=== PATIENT | female | born 1935 | race Caucasian/White ===

== ENCOUNTER → 2016-11-27 | Outpatient (REF) | payer MEDICARE, MEDICAID ==
[~2016-11-27] MED LIST: ALLO300T2 PO; ASPI325T PO; CLOP75TA2 PO; LASI40TA PO; LISIPOW PO; LOVA1CAP16 PO; METO50TA2 PO; METO50TA4 PO; NOVOLIN SC; OMEP20CA3 PO; OXYB5TAB80 PO; REGULAR INSULIN SC; SIMV40TA2 PO
== END ==
LOC: M LAB REF 17:03
PROVIDERS: ATTEND Internal Medicine Nephrology
DX: D50.9 Iron deficiency anemia, unspecified (principal)

== ENCOUNTER 2016-12-09 09:19 | Outpatient (CLI) | payer MEDICARE, MEDICAID ==
[2016-12-09] MEDS ORDERED: IRON SUCROSE 25 MG in NS 50 ML IV ONE (10:00)
[2016-12-09] MEDS ORDERED: IRON SUCROSE 475 MG in NS 250 ML IV ONE (11:00)
== END 2016-12-09 14:55 | disposition home or self-care (01) ==
LOC: M INFU 09:19
PROVIDERS: ATTEND Internal Medicine Nephrology
DX: D50.9 Iron deficiency anemia, unspecified (principal)
CPT/HCPCS: 96365; 96366; J1756

== ENCOUNTER → 2018-01-18 | Outpatient (CLI) | payer MEDICARE, MEDICAID | LOC: M RAD 13:22 | DX: N18.6 End stage renal disease (principal) | CPT/HCPCS: G0365 ==

== ENCOUNTER → 2018-02-11 | Day surgery (SDC) | payer MEDICARE, MEDICAID ==
[~2018-02-11] MED LIST changes: -ALLO300T2 PO; -ASPI325T PO; -CLOP75TA2 PO; -LASI40TA PO; -LISIPOW PO; -LOVA1CAP16 PO; -METO50TA2 PO; -METO50TA4 PO; -NOVOLIN SC; +NS 1,000 ML IV; -OMEP20CA3 PO; -OXYB5TAB80 PO; -REGULAR INSULIN SC; -SIMV40TA2 PO
== END | disposition home or self-care (01) ==
LOC: M SDC 09:41
DX: N18.9 Chronic kidney disease, unspecified (principal); Z53.8 Procedure and treatment not carried out for other reasons

== ENCOUNTER → 2018-08-11 | Outpatient (CLI) | payer MEDICARE, MEDICAID | LOC: M RAD 11:56 | DX: Z01.818 Encounter for other preprocedural examination (principal); N18.6 End stage renal disease | CPT/HCPCS: G0365 ==

== ENCOUNTER 2018-10-06 10:51 | Day surgery (SDC) | payer MEDICARE, MEDICAID ==
[~2018-10-06] VITALS: Ht 134.6 cm; Wt 66.2 kg
[~2018-10-06 10:51] MED LIST changes: +ALBU83IN INH; +ALLO10TA PO; +ALLO300T2 PO; +AMLO5TAB6 PO; +ASPI325T PO; +CLOP75TA2 PO; +FENO54TA2 PO; +FURO40TA2 PO; +HUMU70IN SC; +INSUNSD SC; +LASI40TA PO; +LIDOCAINE 2% INJ 100 MG/5 ML SDV (FOR ANES.) As Ordered ONE; +LISIPOW PO; +LOVA1CAP16 PO; +LOVA1CAP17 PO; +META58.612 PO; +METO1TAB32 PO; +METO50TA2 PO; +METO50TA4 PO; +MIDAZOLAM INJ 2 MG/2 ML VIAL (J2250) As Ordered ONE; +MUCI3TAB PO; +NOVOLIN SC; -NS 1,000 ML IV; +OMEP20CA3 PO; +ONDANSETRON 4MG/2ML VIAL (J2405) As Ordered ONE; +OXYB5TAB10 PO; +OXYB5TAB80 PO; +PRAV10TA3 PO; +PROBCAP14 PO; +PROPOFOL 500 MG/50 ML VIAL As Ordered ONE; +REGULAR INSULIN SC; +SIMV40TA2 PO; +SPIR-10 PO; +VITA50005 PO; +Vantin PO; +dexameTHASONE 4 MG/ML 1ML VIAL (J1100) As Ordered ONE; +fentaNYL 100 MCG/2 ML INJECTION (J3010) As Ordered ONE
[2018-10-06] MEDS ORDERED: D5W/0.2% SODIUM CHLORIDE 1,000 ML IV ONE (11:00)
[2018-10-06] MEDS ORDERED: LIDOCAINE 1% SDV INJ 30 ML VIAL As Ordered ONE (15:10)
[2018-10-06] MEDS ORDERED: BUPIVACAINE HCL 0.5% 30 ML VIAL As Ordered ONE (15:11)
[2018-10-06] MEDS ORDERED: HEPARIN SOD (PORCINE) 5000 UNITS/ML VIAL As Ordered ONE (15:11)
[2018-10-06 16:55] VITALS: BP 129/58
--- NOTE | 2018-11-02 16:12 | RO ---
DATE OF PROCEDURE: 10/06/2018 PREOPERATIVE DIAGNOSIS: Chronic renal insufficiency nearing end-stage renal disease. POSTOPERATIVE DIAGNOSIS: Chronic renal insufficiency nearing end-stage renal disease. PROCEDURE: Right brachiocephalic arteriovenous fistula creation. SURGEON: Dr. Lebron Coles COMIC BOOK ARTIST: None. INDICATION: The patient is a 82-year-old female with previous fistula creation that thrombosed and now needs access for future hemodialysis. The patient will undergo creation of a right brachiocephalic arteriovenous fistula. Risks, benefits and alternative treatment options were discussed with the patient. ANESTHESIA: Anesthesia was local MAC. ESTIMATED BLOOD LOSS: 30 mL IV FLUIDS: 500 mL. HEPARIN: None. COMPLICATIONS: Drains none. SPECIMENS: None. IMPLANT: Implant. PROCEDURE: The patient was taken to the operating room, placed supine on the operating table and prepped and draped in a standard surgical fashion. An incision was made at the antecubital fossa after anesthetizing overlying skin 1% lidocaine mixed with 0.5% Marcaine. The brachial artery and cephalic vein was sharply dissected free encircled vessel loops. The cephalic vein was then transected as far distal as possible and the remnant ligated with a 2-0 silk suture. Cephalic vein was dilated with heparinized saline brought to the brachial artery. The brachial artery was clamped proximally and distally and arteriotomy created. The cephalic vein was anastomosed to the brachial artery in end-to-side fashion using 6-0 Prolene suture in running continuous fashion. Clamps were released. There was good flow in the brachial artery proximal distal the arteriovenous anastomosis as well as good flow into the cephalic vein. Hemostasis was obtained after which the incision was closed using 3-0 Monocryl to approximate the skin in a running subcuticular fashion. Steri-Strips and dressings were applied. The patient tolerated the procedure well. All instrument, sponge and needle counts were correct at the end the case and there were no complications. Dr. Coles was present for and directed the entire case. The patient was transferred to the recovery room awake, alert, extubated and in stable condition.
== END 2018-10-06 17:23 | disposition home or self-care (01) ==
LOC: M SDC 10:51
PROVIDERS: ATTEND Surgery Vascular Surgery
DX: N18.9 Chronic kidney disease, unspecified (principal)
CPT/HCPCS: 36821; J1100; J2250; J2405; J3010

== ENCOUNTER → 2019-01-02 | Outpatient (REF) | payer MEDICARE, MEDICAID ==
[~2019-01-02] MED LIST changes: +ASPI-1 PO; -LIDOCAINE 2% INJ 100 MG/5 ML SDV (FOR ANES.) As Ordered ONE; -MIDAZOLAM INJ 2 MG/2 ML VIAL (J2250) As Ordered ONE; -ONDANSETRON 4MG/2ML VIAL (J2405) As Ordered ONE; -PROPOFOL 500 MG/50 ML VIAL As Ordered ONE; -dexameTHASONE 4 MG/ML 1ML VIAL (J1100) As Ordered ONE; -fentaNYL 100 MCG/2 ML INJECTION (J3010) As Ordered ONE
[2019-01-02 09:53] LABS: HEMATOCRIT 32.6 % (36.0-47.0); HEMOGLOBIN 9.9 g/dl (12.0-15.5); MEAN CORPUSCULAR HEMOGLOBIN 28.5 pg (27.0-33.0); MEAN CORPUSCULAR HGB CONC 30.4 g/dl (32.0-36.5); MEAN CORPUSCULAR VOLUME 93.9 fl (80.0-96.0); PLATELET COUNT, AUTOMATED 418 10^3/uL (150-450); RED BLOOD COUNT 3.47 10^6/uL (4.00-5.40); WHITE BLOOD COUNT 12.6 10^3/uL (4.0-10.0)
[2019-01-02 10:24] LABS: CALCIUM LEVEL 8.9 MG/DL (8.8-10.2); CREATININE FOR GFR 1.8 MG/DL (0.55-1.30); GLOMERULAR FILTRATION RATE 28.6 (>32); POTASSIUM SERUM 4.7 MEQ/L (3.5-5.1)
== END ==
PROVIDERS: ATTEND Internal Medicine
DX: I21.4 Non-ST elevation (NSTEMI) myocardial infarction (principal)

== ENCOUNTER → 2019-01-04 | Outpatient (REF) | payer MEDICARE, MEDICAID ==
[2019-01-04 08:46] LABS: HEMATOCRIT 33.5 % (36.0-47.0); HEMOGLOBIN 10.2 g/dl (12.0-15.5); MEAN CORPUSCULAR HEMOGLOBIN 28.6 pg (27.0-33.0); MEAN CORPUSCULAR HGB CONC 30.4 g/dl (32.0-36.5); MEAN CORPUSCULAR VOLUME 93.8 fl (80.0-96.0); PLATELET COUNT, AUTOMATED 454 10^3/uL (150-450); RED BLOOD COUNT 3.57 10^6/uL (4.00-5.40); WHITE BLOOD COUNT 12.9 10^3/uL (4.0-10.0)
[2019-01-04 09:19] LABS: CALCIUM LEVEL 9.6 MG/DL (8.8-10.2); CREATININE FOR GFR 1.94 MG/DL (0.55-1.30); GLOMERULAR FILTRATION RATE 26.2 (>32); POTASSIUM SERUM 4.3 MEQ/L (3.5-5.1)
== END ==
PROVIDERS: ATTEND Internal Medicine
DX: I21.4 Non-ST elevation (NSTEMI) myocardial infarction (principal); I50.9 Heart failure, unspecified

== ENCOUNTER → 2019-01-06 | Outpatient (REF) | payer MEDICARE, MEDICAID ==
[2019-01-06 15:15] LABS: CALCIUM LEVEL 9.5 MG/DL (8.8-10.2); CREATININE FOR GFR 1.78 MG/DL (0.55-1.30)
== END ==
PROVIDERS: ATTEND Internal Medicine
DX: I50.9 Heart failure, unspecified (principal)

== ENCOUNTER → 2019-01-09 | Outpatient (REF) | payer MEDICARE, MEDICAID ==
[2019-01-09 11:04] LABS: CALCIUM LEVEL 9.4 MG/DL (8.8-10.2); CREATININE FOR GFR 1.75 MG/DL (0.55-1.30); GLOMERULAR FILTRATION RATE 29.6 (>32); POTASSIUM SERUM 4.9 MEQ/L (3.5-5.1)
== END ==
PROVIDERS: ATTEND Internal Medicine
DX: I21.4 Non-ST elevation (NSTEMI) myocardial infarction (principal)

== ENCOUNTER → 2019-02-03 | Outpatient (CLI) | payer MEDICARE, MEDICAID ==
[~2019-02-03] MED LIST changes: +BUPIVACAINE HCL 0.5% 10 ML VIAL As Ordered ONE; +ISOVUE-300 61% 50ML VIAL (Q9967) As Ordered ONE; +LIDOCAINE 2% MDV 20 ML VIAL As Ordered ONE
== END ==
LOC: M IRPRO 09:56
PROVIDERS: ATTEND Surgery Vascular Surgery
DX: N18.6 End stage renal disease (principal); Z53.9 Procedure and treatment not carried out, unspecified reason

== ENCOUNTER → 2019-12-05 | Outpatient (CLI) | payer MEDICARE, MEDICAID ==
[~2019-12-05] MED LIST changes: +ALTEPLASE 2 MG/2 ML VIAL (J2997 PER 1MG) As Ordered ONE; -BUPIVACAINE HCL 0.5% 10 ML VIAL As Ordered ONE; +LIDOCAINE 1% MDV 20ML VIAL As Ordered ONE; -LIDOCAINE 2% MDV 20 ML VIAL As Ordered ONE; +MIDAZOLAM INJ 2 MG/2 ML VIAL (J2250) As Ordered ONE; +OMEP1CAP73 PO; +fentaNYL 100 MCG/2 ML INJECTION (J3010) As Ordered ONE
--- NOTE | 2019-12-05 18:26 | ROOPDOC ---
[facility] Report Of Operation Report of Operation DATE OF PROCEDURE: 12/05/19 PREPROCEDURE DIAGNOSES: End-stage renal disease with inability to cannulate and use right upper extremity brachiocephalic AV fistula POSTPROCEDURE DIAGNOSES: Same PROCEDURE: 1. Ultrasound-guided examination of right brachiocephalic AV fistula and IV access right cephalic vein 2. Right upper extremity fistulogram SURGEON: Viktoriya Altman MD ANESTHESIA: Local anesthesia 4cc lidocaine. Moderate intravenous conscious sedation was supervised by Dr. Altman. The patient was independently monitored by registered nurse assigned to the Department of radiology using automated blood pressure, EKG, and pulse oximetry. The detailed sedation record is permanently stored in the hospital information system. The following is the brief sedation record: Start time 17:22, stop time 17:58, Versed 1 mg IV, fentanyl 50 g IV. INDICATION FOR PROCEDURE: This is a very pleasant 84-year-old patient with end- stage renal disease currently dialyzing for over a year with a PermCath. The patient does have a right brachiocephalic fistula placed by Dr. Coles in September 2018, but she has not been able to use it for dialysis. Risks benefits and alternatives to a fistulogram and potential intervention were explained to the patient. She is agreeable to proceed. Informed consent was obtained. INTERPRETATION: 1. With ultrasound, we examined the AV fistula. The brachiocephalic AV anastomosis is widely patent. There is good inflow into the cephalic vein which crosses over the antecubital crease and then ascends over the bicep in a zigzag tortuous pattern with intermittent tight stenoses noted. The vein is deep, there is significant subcutaneous tissue above and below it, and it is difficult to cannulate due to being freely mobile in adipose tissue. However, despite being somewhat small and on matured, the vein is patent to the mid upper arm although we did note some nonocclusive thrombus in the cephalic vein as we ascended more proximally in the arm. 2. Initial fistulogram does not show flow past the tip of her sheath. We could not advance a wire or the sheath further to see if there was flow beyond this. 3. After repeat cephalic vein accessed under ultrasound guidance more proximally, we noted there was flow through the fistula to just proximal to the mid arm where we were able to examine with ultrasound, but near the shoulder there are two tight focal occlusions, and proximal to this leading into the central veins there is one millimeter diameter of the cephalic vein. REPORT OF OPERATION: The patient was brought to the angiographic suite in stable condition. Her right upper extremity was prepped and draped in a sterile fashion. A timeout was performed. Local anesthesia was administered to the skin and subcutaneous tissue over the cephalic vein near the AV anastomosis. Ultrasound was used to examine the AV fistula prior to cannulation from the AV anastomosis to the mid upper arm were we were prepped sterilely. Please see interpretation above. We then accessed the cephalic vein near the AV anastomosis under ultrasound guidance. A wire was passed through this access but it was difficult to pass more than [address] the sheath but could not advance the sheath over the wire further. The sheath was flushed with saline and a quick fistulogram was performed, and we noted an occlusion just distal to the tip of the sheath. There was a retrograde branch that was widely patent and the outflow was through the branch. We then tried to navigate a Glidewire more proximally up the arm, but were unable. We place a stitch around the sheath, and removed the sheath. Pressure was held and sterile dressings were applied. I then wanted to see what the outflow was to evaluate the more proximal aspect of the vein. Ultrasound again was used to guide access. Although there was a small amount of thrombus in the vein more proximally, we were able to cannulate easily under ultrasound guidance. A wire only past just proximal to the shoulder, but we were able to place the 4 [place] sheath and flushed the sheath with saline. A fistulogram confirm there was significant tortuosity in the vein, nonocclusive thrombus, and to focal occlusions near the shoulder, with the cephalic vein proximally 1 mm diameter proximal to this leading to the subclavian vein. Despite aggressive attempts, we were not able to advance the wire past the occlusions. This concluded the procedure. Suture was placed at the she site sheath was removed. Sterile dressings were applied. Pressure was held for 5 minutes and the patient was taken to recovery in stable condition. She tolerated the procedure and the sedation well. ESTIMATED BLOOD LOSS: Approximately 5 mL. COMPLICATIONS: None. PLAN: I do not believe her right brachiocephalic fistula is salvageable. Continue to use the PermCath for dialysis. Patient will need a vein mapping and we will discuss options for new autologous versus graft AV access. We also will probably need to ligate her right brachiocephalic AV fistula to help with her symptoms of swelling and discomfort in her right upper extremity. She says she has experienced both of those symptoms since her surgery over a year ago. We would like to expedite this since the patient has not been able to use the fistula since it was placed by Dr. Coles over a year ago, and has been using a PermCath for dialysis for over a year as well. We appreciate the opportunity to participate in the care of this patient. VIKTORIYA ALTMAN MD Dec 05, 2019 18:26
[2019-12-05 19:00] VITALS: BP 139/63
== END ==
LOC: M IRPRO 14:55
PROVIDERS: ATTEND Surgery Vascular Surgery
DX: T82.868A Thrombosis due to vascular prosthetic devices, implants and grafts, initial encounter (principal); N18.6 End stage renal disease; X58.XXXA Exposure to other specified factors, initial encounter; Y93.9 Activity, unspecified; Y92.9 Unspecified place or not applicable; Y99.9 Unspecified external cause status
CPT/HCPCS: 36901; 99152; 99153; C1769; C1894; J1644; J2250; J3010; Q9967

== ENCOUNTER → 2019-12-21 | Outpatient (CLI) | payer MEDICARE, MEDICAID ==
[~2019-12-21] MED LIST changes: -ALTEPLASE 2 MG/2 ML VIAL (J2997 PER 1MG) As Ordered ONE; -ISOVUE-300 61% 50ML VIAL (Q9967) As Ordered ONE; -LIDOCAINE 1% MDV 20ML VIAL As Ordered ONE; -MIDAZOLAM INJ 2 MG/2 ML VIAL (J2250) As Ordered ONE; -fentaNYL 100 MCG/2 ML INJECTION (J3010) As Ordered ONE
--- NOTE | 2019-12-21 13:45 | REP ---
BILATERAL DUPLEX DOPPLER VENOUS AND ARTERIAL ULTRASOUND FOR AV FISTULA MAPPING: Real-time ultrasound evaluation and duplex Doppler interrogation is performed of the upper extremity deep venous and arterial systems, to evaluate for AV fistula placement. There is a patent right-sided AV fistula connecting brachial artery to cephalic vein. Thrombus is seen near the venous anastomosis. There is high resistance arterial flow. On the right, the basilic vein measures 4 mm at the level of the upper and lower humerus 3 mm throughout the forearm. Median cubital vein is not visualized. The right cephalic vein measures 2 mm at the upper humerus. At the level of the lower humerus, it measures 4 mm with intraluminal thrombus. Cephalic vein measures 3 mm at the upper forearm and 2 mm in the lower forearm. Right upper extremity arterial structures demonstrate normal flow velocities with biphasic and triphasic waveforms. Right axillary and branchial arteries measure 5 mm, radial artery 3 mm and ulnar artery 2 mm. On the left, the basilic vein measures 3 mm at the level of the humerus and 2 mm in the upper forearm. It is not visualized in the lower forearm. Median cubital vein measures 2 mm. Left cephalic vein measures 2 mm at the level of the humerus and is not seen in the forearm. Left upper extremity arterial structures demonstrate normal flow velocities with biphasic waveforms. Left axillary artery measures 4 mm, brachial artery, radial and ulnar arteries 3 mm. Electronically Signed by Nick Mccallum MD 12/21/2019 02:34 P
== END ==
LOC: M RAD 09:59
PROVIDERS: ATTEND Physician Assistant
DX: N18.9 Chronic kidney disease, unspecified (principal)

== ENCOUNTER 2020-05-03 11:40 | Inpatient (IN) | payer MEDICARE, MEDICAID ==
[~2020-05-03] VITALS: Ht 134.6 cm; Wt 63.5 kg
[~2020-05-03 11:40] MED LIST changes: +AMLO1TAB24 PO; -AMLO5TAB6 PO
[2020-05-03] MEDS ORDERED: ASPI81TA86 PO (11:58)
[2020-05-03] MEDS ORDERED: NS 1,000 ML IV SCH (12:30)
--- NOTE | 2020-05-03 12:56 | REPVR ---
PROCEDURE INFORMATION: Exam: CT Abdomen And Pelvis Without Contrast Exam date and time: 05/03/2020 12:01 PM Age: 84 years old Clinical indication: Other: Renal failure TECHNIQUE: Imaging protocol: Computed tomography of the abdomen and pelvis without contrast. Radiation optimization: All CT scans at this facility use at least one of these dose optimization techniques: automated exposure control; mA and/or kV adjustment per patient size (includes targeted exams where dose is matched to clinical indication); or iterative reconstruction. COMPARISON: RENAL US 09/28/2014 12:41 PM FINDINGS: Liver: Normal. No mass. Gallbladder and bile ducts: The gallbladder is surgically absent, with metallic clips in the gallbladder fossa. The extrahepatic bile ducts are age-appropriate, measuring 8.6 mm. Pancreas: Moderate pancreatic atrophy. Spleen: Normal. No splenomegaly. Adrenals: Normal. No mass. Kidneys and ureters: Moderate left renal posterior upper pole cortical scarring. Left renal 13.9 mm benign parapelvic cyst. Right renal 4.5 cm probable benign cyst. Right mid renal posterior 1.5 mm calyceal calculus. Left renal calculi (3), the largest in the lateral upper pole measuring 2.1 mm. No evidence of obstructive uropathy. Stomach and bowel: Sigmoid colonic diverticula are present without evidence of diverticulitis. Mild rectal constipation. Appendix: The vermiform appendix is normal. Intraperitoneal space: Unremarkable. No free air. No significant fluid collection. Vasculature: Calcified phleboliths are present in the lower pelvis bilaterally. Marked aortic atherosclerotic calcification without aneurysm. The iliac arteries show moderate bilateral atherosclerotic calcifications without evidence of aneurysm. Atherosclerotic calcifications are present involving the RCA coronary artery. Lymph nodes: No enlarged lymph nodes. Bladder: Unremarkable as visualized. Reproductive: NewThe uterus is status post hysterectomy. The ovaries are not identified. Bones/joints: Bilateral lower lumbar facet primary osteoarthritis. Right L5-S1 lateral recess stenosis. Grade 1 L5-S1 degenerative type anterolisthesis. Mild L3-L4 retrolisthesis. There is degenerative disc disease at multiple lumbar spine disk levels. Soft tissues: A tiny paraumbilical hernia containing only abdominal fat is noted. Nonspecific mild right posterior lateral inferior gluteal at adipose edema/scarring (series 201, image 114). Other findings: . IMPRESSION: 1. Prior cholecystectomy. 2. Diverticulosis. 3. Mild rectal constipation. 4. Prior hysterectomy. 5. Moderate left renal cortical scarring. 6. Left renal benign parapelvic cyst. 7. Right renal probable benign cyst. 8. Bilateral renal calyceal lithiasis. 9. Coronary atherosclerosis. COMMENTS: Consistent with the [employer]'s Incidental Findings Committee white paper (J Am Henry Radiol 2018): Any incidental renal lesion less than 1.0 cm or classified as too small to characterize, or any incidental cystic renal lesion characterized as simple-appearing, is likely benign. No follow-up imaging is recommended for these lesions per consensus recommendations based on imaging criteria. Electronically signed by: Lalit Sewell On 05/03/2020 12:56:22 PM
[2020-05-03] MEDS ORDERED: IPRA0.00 INH (13:08)
[2020-05-03] MEDS ORDERED: VITA50005 PO (13:19)
[2020-05-03] MEDS ORDERED: FISH1000 PO (13:19)
[2020-05-03] MEDS ORDERED: HUMU70IN SC (13:19)
[2020-05-03] MEDS ORDERED: METO1TAB7 PO (13:19)
[2020-05-03] MEDS ORDERED: AMLO2.5T3 PO (13:19)
[2020-05-03] MEDS ORDERED: FURO40TA2 PO (13:19)
[2020-05-03 14:56] LABS: IONIZED CALCIUM 4.5 MG/DL (4.5-5.3)
[2020-05-03 15:32] LABS: BASO # 0.1 10^3/uL (0.0-0.2); BASO % 0.7 % (0.0-1.0); EOS # 0.6 10^3/uL (0.0-0.5); EOS % 4.7 % (0.0-3.0); HEMATOCRIT 42.2 % (36.0-47.0); HEMOGLOBIN 14.2 g/dl (12.0-15.5); LYMPH # 2.5 10^3/uL (1.5-5.0); LYMPH % 18.4 % (24.0-44.0); MEAN CORPUSCULAR HEMOGLOBIN 29.9 pg (27.0-33.0); MEAN CORPUSCULAR HGB CONC 33.6 g/dl (32.0-36.5); MEAN CORPUSCULAR VOLUME 88.8 fl (80.0-96.0); MONO # 1.1 10^3/uL (0.0-0.8); MONO % 8.4 % (0.0-5.0); NEUTROPHILS # 9.1 10^3/uL (1.5-8.5); NEUTROPHILS % 67.1 % (36.0-66.0); PLATELET COUNT, AUTOMATED 309 10^3/uL (150-450); RED BLOOD COUNT 4.75 10^6/uL (4.00-5.40); WHITE BLOOD COUNT 13.6 10^3/uL (4.0-10.0)
[2020-05-03] MEDS ORDERED: DEXTROSE 50% 50 ML SYRINGE IV PRN (15:45)
[2020-05-03] MEDS ORDERED: MAALOX 30 ML SUSP *UDC PO PRN (15:45)
[2020-05-03] MEDS ORDERED: MOM 30ML SUSPENSION UDC PO PRN (15:45)
[2020-05-03] MEDS ORDERED: GLUCOSE 4GM CHEW TABLET PO PRN (15:45)
[2020-05-03] MEDS ORDERED: GLUCAGON INJ 1MG VIAL SC PRN (15:45)
[2020-05-03 15:57] LABS: ALBUMIN 3.5 GM/DL (3.2-5.2); BILIRUBIN,TOTAL 0.3 MG/DL (0.2-1.0); CALCIUM LEVEL 9.1 MG/DL (8.8-10.2); CREATININE FOR GFR 4.96 MG/DL (0.55-1.30); GLOMERULAR FILTRATION RATE 8.9 (>32); MAGNESIUM LEVEL 2.9 MG/DL (1.8-2.4); POTASSIUM SERUM 3.8 MEQ/L (3.5-5.1); TOTAL PROTEIN 6.6 GM/DL (6.4-8.2)
--- NOTE | 2020-05-03 16:07 | HPEPDOC ---
General Date of Admission Date of Service: May 03, 2020 Chief Complaint The patient is a 84-year-old female admitted with a reason for visit of Kidney Issue. Source: Patient Exam Limitations: No limitations Timing/Duration: Other (TWO WEEKS) Severity: Moderate History of Present Illness 84 yof with PMHx of DM-II,HTN,CHF (Non-specific),TIA,GERD,Hyperlipedemia had developed generalized tiredness and shoulder pain on both shoulders , pain is sharp persistant, non radiating, not relieved with meds, not exacerbated by respiration or physical movements, was seen at [facility] and was diagnosed with UTI, symptoms did not resolved and she went back there and was told that UTI is worse now, finally she decideded to go to nephrology office, where she was found to have elevated BUN/Cr and reffered to ED for admission. At present patient complaints of epigastric pain and bilat shoulder pain, no N/V/D. No CP or SOB either. Home Medications Scheduled Allopurinol (Allopurinol) 100 Mg Tab, 100 MG PO BID, (Reported) Amlodipine Besylate (Amlodipine Besylate) 2.5 Mg Tablet, 2.5 MG PO DAILY, (Reported) Aspirin (Aspir 81) 81 Mg Tablet.dr, 81 MG PO Q2D, (Reported) Clopidogrel Bisulfate (Clopidogrel) 75 Mg Tab, 75 MG PO DAILY, (Reported) Ergocalciferol (Vitamin D2) (Vitamin D2) 50,000 Units Cap, 50,000 UNITS PO Q2WK, (Reported) EVERY OTHER WEDNESDAY Furosemide (Furosemide) 40 Mg Tab, 80 MG PO QAM, (Reported) Furosemide (Furosemide) 40 Mg Tablet, 40 MG PO QHS, (Reported) Insulin NPH Hum/Reg Insulin Hm (Humulin 70-30 Vial) 1 Inj Inj, 17 UNITS SC QAM, (Reported) Insulin NPH Hum/Reg Insulin Hm (Humulin 70-30 Vial) 100 Unit/1 Ml Vial, 13 UNITS SC QPM, (Reported) Lactobacillus Acidophilus (Probiotic) 1 Cap Cap, 1 CAP PO DAILY, (Reported) Metoprolol Succinate (Metoprolol Succinate) 50 Mg Tab.er.24h, 50 MG PO BID, (Reported) Mobile-3 Fatty Acids/Fish Oil (Fish Oil 1,000 mg Capsule) 1 Each Capsule, 1,000 MG PO DAILY, (Reported) Omeprazole (Omeprazole) 20 Mg Cap, 20 MG PO DAILY, (Reported) Oxybutynin Chloride (Oxybutynin Chloride) 5 Mg Tab, 5 MG PO DAILY, (Reported) Pravastatin Sodium (Pravastatin Sodium) 10 Mg Tab, 10 MG PO DAILY, (Reported) Spironolactone (Spironolactone) 25 Mg Tab, 25 MG PO DAILY, (Reported) Scheduled PRN Ipratropium/Albuterol Sulfate (Iprat-Albut 0.5-3(2.5) mg/3 ml) 3 Ml Ampul.neb, 1 MAXIMILIANO INH QID PRN for SHORTNESS OF BREATH, (Reported) Allergies Coded Allergies: Sulfa (Sulfonamide Antibiotics) (Verified Adverse Reaction, Intermediate, HYPOTENSION, 05/03/20) nitroglycerin (Verified Adverse Reaction, Intermediate, HYPOTENSION, 05/03/20) codeine (Verified Adverse Reaction, Mild, N/V, 05/03/20) Past Medical History Medical History DM-II,HTN,CHF-Unspecified,TIA,GERD,Hyperlipedemia Surgical History Cholecystectomy,Bladder repair, Bilat AVF placement in the past Family History FHX reviewed, non contributory Social History * Smoker: former Smoker, quit greater than 1 year Alcohol: Denies Drugs: denies A-FIB/CHADSVASC A-FIB History Current/History of A-Fib/PAF?: No Review of Systems Constitutional: Reports: Malaise, Fatigue; Denies: Chills, Fever, Night Sweats, Weakness, Weight Loss, Lethargy, Other Eyes: Denies: Pain, Vision change, Conjunctivae inflammation, Eyelid in flammation, Redness, Other ENT: Denies: Head Aches, Ear Pain, Dysphagia, Sinus Congestion, Post Nasal Drip, Sore Throat, Epistaxis, Other Symptoms Skin: Denies: Rash, Lesions, Jaundice, Bruising, Itching, Dry, Breakdown, Nail Changes, Other Pulmonary: Denies: Dyspnea, Cough, Pleuritic Chest Pain, Other Symptoms Cardiovascular: Denies: Chest Pain, Palpitations, Orthopnea, Paroxysmal Noc. Dyspnea, Edema, Lt Headedness, Other Symptoms Gastrointestinal: Reports: Other Symptoms (epigastric pain); Denies: Nausea, Vomiting, Abdominal Pain, Diarrhea, Constipation, Melena, Hematochezia Genitourinary: Denies: Dysuria, Frequency, Incontinence, Hematuria, Retention, Other Symptoms Hematologic: Denies: Bruising, Bleeding Excessively, Petecchia, Purpura, Enlarged Lymph Nodes, Other Hematologic Endocrine: Denies: Polydipsia, Polyphagia, Polyuria, Heat Intolerance, Cold Intolerance, Other Endocrine Sx Musculoskeletal: Reports: Shoulder Pain (bilat shoulder pain) Neurological: Denies: Weakness, Numbness, Incoordination, Change in speech, Confusion, Seizures, Other Symptoms Psych: Denies: Mood Normal, Anxiety, Depression, Memory Issues, Thoughts of Self Harm, Anger, Thoughts of Harming Other, Other Psych Physical Examination General Exam: Positive: Cooperative Eye Exam: Positive: PERRLA, Conjunctiva & lids normal ENT Exam: Positive: Atraumatic Neck Exam: Positive: Supple Chest Exam: Positive: Clear to auscultation, Normal air movement Heart Exam: Positive: Rate Normal, Normal S1, Normal S2 Abdomen Exam: Positive: Normal bowel sounds, Soft, Tenderness Extremity Exam: Positive: Normal pulses, Other (bilat bruis positive in ati cubital areas) Skin Exam: Positive: Nl turgor and temperature Neuro Exam: Positive: Strength at 5/5 X4 ext, Sensation Intact, Cranial Nerves 3-12 NL Psych Exam: Positive: Mood NL, Oriented x 3 Vital Signs Vital Signs Date Time Temp Pulse Resp B/P (MAP) Pulse Ox O2 Delivery O2 Flow Rate FiO2 05/03/20 14:48 05/03/20 11:40 97.6 58 18 93 Room Air Laboratory Data Labs 24H Laboratory Tests 2 05/03/20 14:30: Lactic Acid Level 0.6 05/03/20 14:31: Immature Granulocyte % (Auto) 0.7, Neutrophils (%) (Auto) 67.1H, Lymphocytes (%) (Auto) 18.4L, Monocytes (%) (Auto) 8.4H, Eosinophils (%) (Auto) 4.7H, Basophils (%) (Auto) 0.7, Neutrophils # (Auto) 9.1H, Lymphocytes # (Auto) 2.5, Monocytes # (Auto) 1.1H, Eosinophils # (Auto) 0.6H, Basophils # (Auto) 0.1, Nucleated Red Blood Cells % (auto) 0.0 05/03/20 14:32: Osmolality 327H, Whole Blood Ionized Calcium 4.5 CBC/BMP Laboratory Tests 05/03/20 14:31 Microbiology Microbiology 05/03/20 Blood Culture, Received Pending 05/03/20 Blood Culture, Received Pending Problems (1) Acute renal failure Status: Acute Problem Text: admit to MED/Surg Floor IVF NS at 100cc/he Dr Yu called for Nephro consult Labs are pending here but done at nephrology office this am showed BUN75 and Cr 4.1 Further recommendations as per nephrology Doubt UTI- probably asymptomatic bactriuria as pt is asymptomatic and afebrile Continue home meds (2) Diabetes mellitus Status: Chronic Problem Text: FSBS q ac and HS with coverage (3) Hyperlipemia Status: Chronic Problem Text: continue home meds (4) HTN (hypertension) Status: Chronic Problem Text: continue home meds (5) GERD (gastroesophageal reflux disease) Plan / VTE VTE Prophylaxis Ordered?: Yes FERMIN HUFF MD May 03, 2020 16:07
[2020-05-03 16:46] LABS: ERYTHROCYTE SEDIMENTATION RATE 37 mm/hr (0-30)
[2020-05-03] MEDS: HumaLOG INSULIN (NovoLOG) PER UNIT SC SCH ×2 (17:30→20:16)
[2020-05-03 19:42] VITALS: BP 140/63
[2020-05-03 22:00] VITALS: BP 130/76
[2020-05-03] MEDS: NS 1,000 ML IV SCH (23:06)
[2020-05-04] MEDS: ACETAMINOPHEN TAB 650MG DOSE (2X325MG) PO PRN ×3 (02:20→21:10)
[2020-05-04 06:00] VITALS: BP 130/61
[2020-05-04 06:07] LABS: HEMATOCRIT 42.8 % (36.0-47.0); HEMOGLOBIN 13.9 g/dl (12.0-15.5); MEAN CORPUSCULAR HEMOGLOBIN 29.8 pg (27.0-33.0); MEAN CORPUSCULAR HGB CONC 32.5 g/dl (32.0-36.5); MEAN CORPUSCULAR VOLUME 91.6 fl (80.0-96.0); PLATELET COUNT, AUTOMATED 298 10^3/uL (150-450); RED BLOOD COUNT 4.67 10^6/uL (4.00-5.40); WHITE BLOOD COUNT 11.5 10^3/uL (4.0-10.0)
[2020-05-04 07:11] LABS: ALBUMIN 3.2 GM/DL (3.2-5.2); BILIRUBIN,TOTAL 0.5 MG/DL (0.2-1.0); CALCIUM LEVEL 8.9 MG/DL (8.8-10.2); CREATININE FOR GFR 4.97 MG/DL (0.55-1.30); GLOMERULAR FILTRATION RATE 8.8 (>32); POTASSIUM SERUM 4.4 MEQ/L (3.5-5.1); TOTAL PROTEIN 6.1 GM/DL (6.4-8.2)
[2020-05-04] MEDS: HumaLOG INSULIN (NovoLOG) PER UNIT SC SCH ×4 (08:27→20:49)
[2020-05-04] MEDS: NS 1,000 ML IV SCH (09:12)
--- NOTE | 2020-05-04 10:58 | IPNPDOC ---
Subjective Date Seen The patient was seen on 05/04/20. Subjective Chief Complaint/HPI Pt still compaining of body pains. General: Reports: Other Symptoms (body aches) Skin: Denies: Rash, Lesions, Jaundice, Bruising, Itching, Dry, Breakdown, Nail Changes, Other Cardiovascular: Denies: Chest Pain, Palpitations, Orthopnea, Paroxysmal Noc. Dyspnea, Edema, Lt Headedness, Other Symptoms Gastrointestinal: Denies: Nausea, Vomiting, Abdominal Pain, Diarrhea, Constipation, Melena, Hematochezia, Other Symptoms Genitourinary: Denies: Dysuria, Frequency, Incontinence, Hematuria, Retention, Other Symptoms Musculoskeletal: Denies: Neck Pain, Back Pain, Shoulder Pain, Arm Pain, Hand Pain, Leg Pain, Foot Pain, Joint Pain, Muscle Pain, Spasms, Other Symptoms Neurological: Denies: Weakness, Numbness, Incoordination, Change in speech, Confusion, Seizures, Other Symptoms Objective Physical Examination Neck Exam: Positive: Supple Chest Exam: Positive: Clear to auscultation, Normal air movement Heart Exam: Positive: Rate Normal, Normal S1, Normal S2 Abdomen Exam: Positive: Normal bowel sounds, Soft, Tenderness Extremity Exam: Positive: Normal pulses, Other (bilat bruis positive in ati cubital areas) Skin Exam: Positive: Nl turgor and temperature Neuro Exam: Positive: Strength at 5/5 X4 ext, Sensation Intact, Cranial Nerves 3-12 NL Assessment /Plan Problems (1) Acute renal failure Status: Acute Problem Text: Continue IVF NS at 100cc/hr Repat renal functions this am 4.97/153 , has not improved since last night. Dr Hensley was made awre about the consult Pt has recieved HD in the past with recovery of her renal functions. Further as per Nephrology Continue present meds (2) GERD (gastroesophageal reflux disease) Problem Text: Continue home meds (3) Diabetes mellitus Status: Chronic Problem Text: FSBS q ac and hs with coverage (4) HTN (hypertension) Status: Chronic Problem Text: Continue present meds (5) Hyperlipemia Status: Chronic Problem Text: continue home meds Plan/VTE VTE Prophylaxis Ordered?: Yes VS, I&O, 24H, Fishbone Vital Signs/I&O Vital Signs Date Time Temp Pulse Resp B/P (MAP) Pulse Ox O2 Delivery O2 Flow Rate FiO2 05/04/20 06:00 97.4 70 19 130/61 (84) 97 Room Air I&O- Last 24 Hours up to 6 AM 05/04/20 06:00 Intake Total 850 ml Output Total 400 ml Balance 450 ml Laboratory Data 24H LABS Laboratory Tests 2 05/03/20 14:30: Lactic Acid Level 0.6 05/03/20 14:31: Immature Granulocyte % (Auto) 0.7, Neutrophils (%) (Auto) 67.1H, Lymphocytes (%) (Auto) 18.4L, Monocytes (%) (Auto) 8.4H, Eosinophils (%) (Auto) 4.7H, Basophils (%) (Auto) 0.7, Neutrophils # (Auto) 9.1H, Lymphocytes # (Auto) 2.5, Monocytes # (Auto) 1.1H, Eosinophils # (Auto) 0.6H, Basophils # (Auto) 0.1, Nucleated Red Blood Cells % (auto) 0.0, Erythrocyte Sedimentation Rate 37H 05/03/20 14:32: Anion Gap 14, Glomerular Filtration Rate 8.9L, Osmolality 327H, Calcium Level 9.1, Whole Blood Ionized Calcium 4.5, Magnesium Level 2.9H, Total Bilirubin 0.3, Aspartate Amino Transf (AST/SGOT) 11, Alanine Aminotransferase (ALT/SGPT) 13, Alkaline Phosphatase 91, Total Creatine Kinase 47, Total Protein 6.6, Albumin 3.5, Albumin/Globulin Ratio 1.1L 05/04/20 05:41: Nucleated Red Blood Cells % (auto) 0.0, Anion Gap 16, Glomerular Filtration Rate 8.8L, Calcium Level 8.9, Total Bilirubin 0.5#, Aspartate Amino Transf (AST/SGOT) 19, Alanine Aminotransferase (ALT/SGPT) 12, Alkaline Phosphatase 87, Total Protein 6.1L, Albumin 3.2, Albumin/Globulin Ratio 1.1L CBC/BMP Laboratory Tests 05/03/20 14:31 05/03/20 14:32 05/04/20 05:41 Microbiology Microbiology 05/03/20 Blood Culture, Received Pending 05/03/20 Blood Culture, Received Pending FERMIN HUFF MD May 04, 2020 10:58
[2020-05-04 14:00] VITALS: BP 150/88
[2020-05-04 14:18] LABS: AMORPHOUS SEDIMENT MODERATE (NEGATIVE); APPEARANCE, URINE TURBID (CLEAR); BACTERIA, URINE AUTO 2+ (NEGATIVE); BILIRUBIN, URINE AUTO NEGATIVE (NEGATIVE); BLOOD, URINE BLOOD 2+ (NEGATIVE); COLOR, URINE YELLOW (YELLOW); GLUCOSE, URINE (UA) AUTO NEGATIVE (NEGATIVE); KETONE, URINE AUTO NEGATIVE (NEGATIVE); LEUKOCYTE ESTERASE, URINE AUTO 2+ (NEGATIVE); NITRITE, URINE AUTO NEGATIVE (NEGATIVE); PROTEIN, URINE AUTO 2+ mg/dL (NEGATIVE); RBC, URINE AUTO 66 /HPF (0-3); SQUAMOUS EPITHELIAL CELL UR AU 23 /HPF (0-6); UROBILINOGEN, URINE AUTO 0.2 mg/dL (0.0-2.0); WBC, URINE AUTO TNTC /HPF (0-3)
[2020-05-04 14:20] LABS: OSMOLALITY URINE 331 MOSM/KG (500-800)
[2020-05-04 14:49] LABS: POTASSIUM RANDOM URINE 24.7 MEQ/L; SODIUM,RANDOM URINE 39 MEQ/L
[2020-05-04] MEDS ORDERED: SODIUM BICARBONATE 75 MEQ in NS 0.45% 1,000 ML IV SCH (15:00)
[2020-05-04] MEDS: cefTRIAXone SOD 1 GM in D5W MINI-BAG PLUS 50 ML IV SCH (15:07)
[2020-05-04] MEDS: traMADol 50 MG TAB PO PRN (16:54)
[2020-05-04 19:04] LABS: APPEARANCE, URINE HAZY (CLEAR); BACTERIA, URINE AUTO NEGATIVE (NEGATIVE); BILIRUBIN, URINE AUTO NEGATIVE (NEGATIVE); BLOOD, URINE BLOOD 3+ (NEGATIVE); COLOR, URINE YELLOW (YELLOW); GLUCOSE, URINE (UA) AUTO NEGATIVE (NEGATIVE); KETONE, URINE AUTO NEGATIVE (NEGATIVE); LEUKOCYTE ESTERASE, URINE AUTO 3+ (NEGATIVE); NITRITE, URINE AUTO NEGATIVE (NEGATIVE); PROTEIN, URINE AUTO NEGATIVE (NEGATIVE); RBC, URINE AUTO 12 /HPF (0-3); SPECIFIC GRAVITY URINE AUTO 1.005 (1.002-1.035); SQUAMOUS EPITHELIAL CELL UR AU 0 /HPF (0-6); UROBILINOGEN, URINE AUTO 0.2 mg/dL (0.0-2.0); WBC, URINE AUTO 146 /HPF (0-3)
[2020-05-04] MEDS ORDERED: DICLOFENAC EPOLAMINE 1.3 % PATCH TOP PRN (21:00)
[2020-05-04] MEDS: RAMELTEON 8 MG TAB (ROZEREM) PO PRN (21:09)
[2020-05-04 22:00] VITALS: BP 133/66
[2020-05-05] MEDS: traMADol 50 MG TAB PO PRN (02:10)
[2020-05-05] MEDS: ACETAMINOPHEN TAB 650MG DOSE (2X325MG) PO PRN ×4 (02:11→20:30)
--- NOTE | 2020-05-05 03:50 | IPNPDOC ---
Text Note Date of Service The patient was seen on 05/05/20. NOTE I was informed that the patient was c/o worsening left shoulder pain and nausea by her RN. #left shoulder pain Plan: increase dose of tramadol / f/u xray / d/c flector patches # nausea she has hx of MIx2 Plan: check trop x2 and EKG / zofran VS,Fishbone, I+O VS, Fishbone, I+O Laboratory Tests 05/04/20 05:41 Vital Signs Date Time Temp Pulse Resp B/P (MAP) Pulse Ox O2 Delivery O2 Flow Rate FiO2 05/05/20 02:10 16 Room Air 05/04/20 22:00 97.8 77 133/66 (88) 96 I&O- Last 24 Hours up to 6 AM 05/05/20 06:00 Intake Total 1595 ml Output Total 700 ml Balance 895 ml NIKI RAMEY MD May 05, 2020 03:50
[2020-05-05] MEDS ORDERED: ONDANSETRON 4MG/2ML VIAL IV PRN (04:00)
[2020-05-05] MEDS ORDERED: traMADol ER 100MG TABLET (ULTRAM ER) PO SCH (04:00)
[2020-05-05 04:24] LABS: HEMATOCRIT 41.6 % (36.0-47.0); HEMOGLOBIN 13.3 g/dl (12.0-15.5); MEAN CORPUSCULAR HEMOGLOBIN 29.7 pg (27.0-33.0); MEAN CORPUSCULAR VOLUME 92.9 fl (80.0-96.0); PLATELET COUNT, AUTOMATED 282 10^3/uL (150-450); RED BLOOD COUNT 4.48 10^6/uL (4.00-5.40); WHITE BLOOD COUNT 9.9 10^3/uL (4.0-10.0)
[2020-05-05 04:59] LABS: ALT/SGPT 11 U/L (12-78); BILIRUBIN,TOTAL 0.3 MG/DL (0.2-1.0); BLOOD UREA NITROGEN 129 MG/DL (7-18); CALCIUM LEVEL 8.7 MG/DL (8.8-10.2); CARBON DIOXIDE LEVEL 24 MEQ/L (21-32); CHLORIDE LEVEL 108 MEQ/L (98-107); CREATININE FOR GFR 3.54 MG/DL (0.55-1.30); GLOMERULAR FILTRATION RATE 13.1 (>32); GLUCOSE, FASTING 246 MG/DL (70-100); POTASSIUM SERUM 3.6 MEQ/L (3.5-5.1); SODIUM LEVEL 140 MEQ/L (136-145); TOTAL PROTEIN 6.4 GM/DL (6.4-8.2); TROPONIN I < 0.02 NG/ML (< 0.10)
[2020-05-05 06:00] VITALS: BP 124/61
[2020-05-05] MEDS: HumaLOG INSULIN (NovoLOG) PER UNIT SC SCH ×4 (09:46→21:00)
[2020-05-05] MEDS ORDERED: NS 1,000 ML IV ONE (11:00)
[2020-05-05] MEDS: traMADol ER 100MG TABLET (ULTRAM ER) PO SCH (12:18)
--- NOTE | 2020-05-05 12:24 | IPNPDOC ---
Subjective Date Seen The patient was seen on 05/05/20. Subjective Chief Complaint/HPI pt still complaining or shoulder pain, but otherwise no new complaints General: Denies: ROS Unobtainable, Chills, Night Sweats, Fatigue, Malaise, Normal Appetite, Other Symptoms Constitutional: Denies: Chills, Fever, Malaise, Night Sweats, Weakness, Fatigue, Weight Loss, Lethargy, Other Pulmonary: Denies: Dyspnea, Cough, Pleuritic Chest Pain, Other Symptoms Cardiovascular: Denies: Chest Pain, Palpitations, Orthopnea, Paroxysmal Noc. Dyspnea, Edema, Lt Headedness, Other Symptoms Gastrointestinal: Denies: Nausea, Vomiting, Abdominal Pain, Diarrhea, Constipation, Melena, Hematochezia, Other Symptoms Genitourinary: Denies: Dysuria, Frequency, Incontinence, Hematuria, Retention, Other Symptoms Musculoskeletal: Reports: Other Symptoms (shoulder pain); Denies: Neck Pain, Back Pain, Shoulder Pain, Arm Pain, Hand Pain, Leg Pain, Foot Pain, Joint Pain, Muscle Pain, Spasms Neurological: Denies: Weakness, Numbness, Incoordination, Change in speech, Confusion, Seizures, Other Symptoms Objective Physical Examination Neck Exam: Positive: Supple Chest Exam: Positive: Clear to auscultation, Normal air movement Heart Exam: Positive: Rate Normal, Normal S1, Normal S2 Abdomen Exam: Positive: Normal bowel sounds, Soft, Tenderness Extremity Exam: Positive: Normal pulses, Other (bilat bruis positive in ati cubital areas) Skin Exam: Positive: Nl turgor and temperature Neuro Exam: Positive: Strength at 5/5 X4 ext, Sensation Intact, Cranial Nerves 3-12 NL Assessment /Plan Problems (1) Acute renal failure Status: Acute Problem Text: Pt was hypotensive this am NS 1 lit bolus given with recovery of BP to NL levels Renal function is slowly improving ,129/3.54. Discussed with Dr Shellie Cronin fluids 1/2 NS @ 60cc/hr Monitor renal functions (2) GERD (gastroesophageal reflux disease) Problem Text: Continue home meds (3) Diabetes mellitus Status: Chronic Problem Text: FSBS q ac and hs with coverage (4) HTN (hypertension) Status: Chronic Problem Text: Continue present meds (5) Hyperlipemia Status: Chronic Problem Text: continue home meds (6) UTI (urinary tract infection) Status: Acute Problem Text: continue Ceftriaxone, urine cultures pending Plan/VTE VTE Prophylaxis Ordered?: Yes VS, I&O, 24H, Fishbone Vital Signs/I&O Vital Signs Date Time Temp Pulse Resp B/P (MAP) Pulse Ox O2 Delivery O2 Flow Rate FiO2 05/05/20 06:00 98.5 75 19 124/61 (82) 95 Room Air I&O- Last 24 Hours up to 6 AM 05/05/20 06:00 Intake Total 2695 ml Output Total 1650 ml Balance 1045 ml Laboratory Data 24H LABS Laboratory Tests 2 05/04/20 18:50: Urine Color YELLOW, Urine Appearance HAZY, Urine pH 6.0, Urine Specific [place] 1.005, Urine Protein NEGATIVE, Urine Glucose (Auto)(UA) NEGATIVE, Urine Ketones (Auto) NEGATIVE, Urine Blood 3+H, Urine Nitrite NEGATIVE, Urine Bilirubin NEGATIVE, Urine Urobilinogen 0.2, Urine Leukocyte Esterase (Auto) 3+H, Urine WBC (Auto) 146H, Urine RBC (Auto) 12H, Urine Hyaline Casts (Auto) 0, Urine Bacteria (Auto) NEGATIVE, Urine Squamous Epithelial Cells 0, Urine Sperm (Auto) 05/05/20 04:19: Nucleated Red Blood Cells % (auto) 0.0, Anion Gap 8, Glomerular Filtration Rate 13.1L, Calcium Level 8.7L, Total Bilirubin 0.3, Aspartate Amino Transf (AST/SGOT) 16, Alanine Aminotransferase (ALT/SGPT) 11L, Alkaline Phosphatase 77, Troponin I < 0.02, Total Protein 6.4, Albumin 3.0L, Albumin/Globulin Ratio 0.9L CBC/BMP Laboratory Tests 05/05/20 04:19 Microbiology Microbiology 05/05/20 Urine Culture, Received Pending 05/03/20 Blood Culture - Preliminary, Resulted No growth after 24 hours . All specim... 05/03/20 Blood Culture - Preliminary, Resulted No growth after 24 hours . All specim... FERMIN HUFF MD May 05, 2020 12:24
[2020-05-05] MEDS ORDERED: POTASSIUM CHLORIDE 10 MEQ SR TABLET PO ONE (13:00)
[2020-05-05] MEDS: NS 0.45% 1,000 ML IV SCH (13:05)
[2020-05-05 14:00] VITALS: BP 142/88
[2020-05-05] MEDS: cefTRIAXone SOD 1 GM in D5W MINI-BAG PLUS 50 ML IV SCH (14:06)
[2020-05-05] MEDS: RAMELTEON 8 MG TAB (ROZEREM) PO PRN (20:29)
[2020-05-05 22:00] VITALS: BP 133/63
[2020-05-06] MEDS: ACETAMINOPHEN TAB 650MG DOSE (2X325MG) PO PRN ×3 (05:24→18:09)
[2020-05-06] MEDS: NS 0.45% 1,000 ML IV SCH (05:25)
[2020-05-06 06:00] VITALS: BP 132/65
[2020-05-06] MEDS: traMADol ER 100MG TABLET (ULTRAM ER) PO SCH (08:28)
[2020-05-06 09:41] LABS: HEMATOCRIT 37.8 % (36.0-47.0); HEMOGLOBIN 12.1 g/dl (12.0-15.5); MEAN CORPUSCULAR HEMOGLOBIN 29.9 pg (27.0-33.0); MEAN CORPUSCULAR VOLUME 93.3 fl (80.0-96.0); PLATELET COUNT, AUTOMATED 262 10^3/uL (150-450); RED BLOOD COUNT 4.05 10^6/uL (4.00-5.40); WHITE BLOOD COUNT 10.4 10^3/uL (4.0-10.0)
[2020-05-06 09:44] LABS: ALBUMIN 2.8 GM/DL (3.2-5.2); BILIRUBIN,TOTAL 0.4 MG/DL (0.2-1.0); CALCIUM LEVEL 8.6 MG/DL (8.8-10.2); CREATININE FOR GFR 2.02 MG/DL (0.55-1.30); POTASSIUM SERUM 4.2 MEQ/L (3.5-5.1); TOTAL PROTEIN 5.3 GM/DL (6.4-8.2)
[2020-05-06] MEDS: HumaLOG INSULIN (NovoLOG) PER UNIT SC SCH ×4 (10:00→21:00)
[2020-05-06] MEDS: LIDOCAINE 5% (LIDODERM) PATCH TD SCH (10:22)
--- NOTE | 2020-05-06 10:51 | IPNPDOC ---
Subjective Date Seen The patient was seen on 05/06/20. Subjective Chief Complaint/HPI pt still has left shoulder and neck pain General: Denies: ROS Unobtainable, Chills, Night Sweats, Fatigue, Malaise, Normal Appetite, Other Symptoms Constitutional: Denies: Chills, Fever, Malaise, Night Sweats, Weakness, Fatigue, Weight Loss, Lethargy, Other Pulmonary: Denies: Dyspnea, Cough, Pleuritic Chest Pain, Other Symptoms Cardiovascular: Denies: Chest Pain, Palpitations, Orthopnea, Paroxysmal Noc. Dyspnea, Edema, Lt Headedness, Other Symptoms Gastrointestinal: Denies: Nausea, Vomiting, Abdominal Pain, Diarrhea, Constipation, Melena, Hematochezia, Other Symptoms Musculoskeletal: Reports: Neck Pain, Shoulder Pain Neurological: Denies: Weakness, Numbness, Incoordination, Change in speech, Confusion, Seizures, Other Symptoms Psych: Denies: Mood Normal, Anxiety, Depression, Memory Issues, Thoughts of Self Harm, Anger, Thoughts of Harming Other, Other Psych Objective Physical Examination Neck Exam: Positive: Supple Chest Exam: Positive: Clear to auscultation, Normal air movement Heart Exam: Positive: Rate Normal, Normal S1, Normal S2 Abdomen Exam: Positive: Normal bowel sounds, Soft, Tenderness Extremity Exam: Positive: Normal pulses, Other (bilat bruis positive in ati cubital areas) Skin Exam: Positive: Nl turgor and temperature Assessment /Plan Problems (1) Acute renal failure Status: Acute Problem Text: Renal NS 1 lit bolus given with recovery of BP to NL levels function is slowly improving Renal labs today: 129/3.[address] secondary to urinary retention Continue IVF as per orders Further as nephro OOB as tolerated PT eval (2) GERD (gastroesophageal reflux disease) Problem Text: Continue home meds (3) Diabetes mellitus Status: Chronic Problem Text: FSBS q ac and hs with coverage (4) HTN (hypertension) Status: Chronic Problem Text: Continue present meds (5) Hyperlipemia Status: Chronic Problem Text: continue home meds (6) UTI (urinary tract infection) Status: Acute Problem Text: continue Ceftriaxone, Urine cultures: Cornybacterium, colony count 4K only will discuss with nephro regarding need for IV anti Bx Plan/VTE VTE Prophylaxis Ordered?: Yes VS, I&O, 24H, Fishbone Vital Signs/I&O Vital Signs Date Time Temp Pulse Resp B/P (MAP) Pulse Ox O2 Delivery O2 Flow Rate FiO2 05/06/20 06:00 97.0 80 19 132/65 (87) 98 Room Air I&O- Last 24 Hours up to 6 AM 05/06/20 06:00 Intake Total 1650 ml Output Total 1800 ml Balance -150 ml Laboratory Data 24H LABS Laboratory Tests 2 05/06/20 09:04: Nucleated Red Blood Cells % (auto) 0.0, Anion Gap 8, Glomerular Filtration Rate 25.0L, Calcium Level 8.6L, Total Bilirubin 0.4, Aspartate Amino Transf (AST/SGOT) 14, Alanine Aminotransferase (ALT/SGPT) 11L, Alkaline Phosphatase 69, Total Protein 5.3L, Albumin 2.8L, Albumin/Globulin Ratio 1.1L CBC/BMP Laboratory Tests 05/06/20 09:04 Microbiology Microbiology 05/05/20 Urine Culture - Final, Complete Corynebacterium Species 05/03/20 Blood Culture - Preliminary, Resulted No Growth after 48 hours. All Specime... 05/03/20 Blood Culture - Preliminary, Resulted No Growth after 48 hours. All Specime... FERMIN HUFF MD May 06, 2020 10:51
--- NOTE | 2020-05-06 10:54 | IPNPDOC ---
Subjective Date Seen The patient was seen on 05/06/20. Subjective Chief Complaint/HPI duplicate note General: Denies: ROS Unobtainable, Chills, Night Sweats, Fatigue, Malaise, Normal Appetite, Other Symptoms Constitutional: Denies: Chills, Fever, Malaise, Night Sweats, Weakness, Fatigu e, Weight Loss, Lethargy, Other Pulmonary: Denies: Dyspnea, Cough, Pleuritic Chest Pain, Other Symptoms Cardiovascular: Denies: Chest Pain, Palpitations, Orthopnea, Paroxysmal Noc. Dyspnea, Edema, Lt Headedness, Other Symptoms Gastrointestinal: Denies: Nausea, Vomiting, Abdominal Pain, Diarrhea, Constipation, Melena, Hematochezia, Other Symptoms Musculoskeletal: Denies: Neck Pain, Back Pain, Shoulder Pain, Arm Pain, Hand Pain, Leg Pain, Foot Pain, Joint Pain, Muscle Pain, Spasms, Other Symptoms Neurological: Denies: Weakness, Numbness, Incoordination, Change in speech, Confusion, Seizures, Other Symptoms Objective Physical Examination Neck Exam: Positive: Supple Chest Exam: Positive: Clear to auscultation, Normal air movement Heart Exam: Positive: Rate Normal, Normal S1, Normal S2 Abdomen Exam: Positive: Normal bowel sounds, Soft, Tenderness Extremity Exam: Positive: Normal pulses Skin Exam: Positive: Nl turgor and temperature Assessment /Plan Problems (1) Acute renal failure Status: Acute Problem Text: Renal NS 1 lit bolus given with recovery of BP to NL levels function is slowly improving Renal labs today: 129/3.[address] secondary to urinary retention Continue IVF as per orders Further as nephro OOB as tolerated PT eval (2) GERD (gastroesophageal reflux disease) Problem Text: Continue home meds (3) Diabetes mellitus Status: Chronic Problem Text: FSBS q ac and hs with coverage (4) HTN (hypertension) Status: Chronic Problem Text: Continue present meds (5) Hyperlipemia Status: Chronic Problem Text: continue home meds (6) UTI (urinary tract infection) Status: Acute Problem Text: continue Ceftriaxone, Urine cultures: Cornybacterium, colony count 4K only will discuss with nephro regarding need for IV anti Bx Plan/VTE VTE Prophylaxis Ordered?: Yes VS, I&O, 24H, Fishbone Vital Signs/I&O Vital Signs Date Time Temp Pulse Resp B/P (MAP) Pulse Ox O2 Delivery O2 Flow Rate FiO2 8/31/20 06:00 97.0 80 19 132/65 (87) 98 Room Air I&O- Last 24 Hours up to 6 AM 05/06/20 06:00 Intake Total 1650 ml Output Total 1800 ml Balance -150 ml Laboratory Data 24H LABS Laboratory Tests 2 05/06/20 09:04: Nucleated Red Blood Cells % (auto) 0.0, Anion Gap 8, Glomerular Filtration Rate 25.0L, Calcium Level 8.6L, Total Bilirubin 0.4, Aspartate Amino Transf (AST/SGOT) 14, Alanine Aminotransferase (ALT/SGPT) 11L, Alkaline Phosphatase 69, Total Protein 5.3L, Albumin 2.8L, Albumin/Globulin Ratio 1.1L CBC/BMP Laboratory Tests 05/06/20 09:04 Microbiology Microbiology 05/05/20 Urine Culture - Final, Complete Corynebacterium Species 05/03/20 Blood Culture - Preliminary, Resulted No Growth after 48 hours. All Specime... 05/03/20 Blood Culture - Preliminary, Resulted No Growth after 48 hours. All Specime... FERMIN HUFF MD May 06, 2020 10:54
--- NOTE | 2020-05-06 13:20 | IPNPDOC ---
Text Note Date of Service The patient was seen on 05/06/20. NOTE SUBJECTIVE: Patient was seen and examined today laying comfortably in bed. She states is feeling some improvement from when she came into the hospital. No new concerns. She continues with a patton catheter draining cloudy urine with sediment, likely pyuria. OBJECTIVE: PHYSICAL EXAMINATION: VITAL SIGNS: Please see below. GENERAL: Alert, sitting up comfortably in bed, in no acute distress HEENT: NC, AT, moist mucous membranes CARDIOVASCULAR: RRR, normal S1 and S2 RESPIRATORY: CTAB, no wheezing, rhonchi, or rales ABDOMINAL: Soft, nontender, nondistended, bowel sounds present EXTREMITIES: no edema noted. ASSESSMENT/PLAN: 1. Urinary tract infection. Continue IV fluids and IV ceftriaxone for antibiotic coverage. Urine draining from the patton continues to appear pyuric. Culture positive for corynebacterium, no sensitivities available. 2. Acute renal failure on CKD secondary to UTI. Creatinine improved to 2.02 today, down from 3.54. Her baseline appears to be around 1.8. Thank you for the consultation on this patient, we will continue to follow along. VS,Fishbone, I+O VS, Fishbone, I+O Laboratory Tests 05/06/20 09:04 Vital Signs Date Time Temp Pulse Resp B/P (MAP) Pulse Ox O2 Delivery O2 Flow Rate FiO2 05/06/20 06:00 97.0 80 19 132/65 (87) 98 Room Air I&O- Last 24 Hours up to 6 AM 05/06/20 06:00 Intake Total 1650 ml Output Total 1800 ml Balance -150 ml GME ATTESTATION GME ATTESTATION My faculty preceptor for this patient encounter was physically present during the encounter and was fully available. All aspects of the patient interview, examination, medical decision making process, and medical care plan development were reviewed and approved by the faculty preceptor. The faculty preceptor is aware and concurs with the plan as stated in the body of this note and will attest to such by his/her cosignature. ATTENDING NOTE ARIELA on CKD4 Urinary retention UTI Chronic CHF Cont Patton and IV Rocephin. IVF to be stopped after 2L. ARIELA resolving. Diuretics on hold. JOSE MARIA ALVAREZ D.O. May 06, 2020 13:20 UZIEL BARNES MD May 06, 2020 21:33
[2020-05-06] MEDS: cefTRIAXone SOD 1 GM in D5W MINI-BAG PLUS 50 ML IV SCH (13:41)
[2020-05-06 14:00] VITALS: BP 145/61
[2020-05-06] MEDS: **NOTE PATIENT COMMENT** MISC XX SCH (21:00)
[2020-05-06 22:00] VITALS: BP 145/61
[2020-05-07 06:00] VITALS: BP 153/72
[2020-05-07 06:38] LABS: ALBUMIN 2.7 GM/DL (3.2-5.2); BILIRUBIN,TOTAL 0.3 MG/DL (0.2-1.0); CALCIUM LEVEL 9.3 MG/DL (8.8-10.2); CREATININE FOR GFR 1.6 MG/DL (0.55-1.30); GLOMERULAR FILTRATION RATE 32.7 (>32); POTASSIUM SERUM 4.4 MEQ/L (3.5-5.1); TOTAL PROTEIN 5.9 GM/DL (6.4-8.2)
[2020-05-07 06:41] LABS: BASO # 0.1 10^3/uL (0.0-0.2); BASO % 1.4 % (0.0-1.0); EOS # 1.2 10^3/uL (0.0-0.5); EOS % 12.2 % (0.0-3.0); HEMATOCRIT 39.5 % (36.0-47.0); HEMOGLOBIN 12.5 g/dl (12.0-15.5); LYMPH # 2.5 10^3/uL (1.5-5.0); LYMPH % 25.5 % (24.0-44.0); MEAN CORPUSCULAR HEMOGLOBIN 29.9 pg (27.0-33.0); MEAN CORPUSCULAR HGB CONC 31.6 g/dl (32.0-36.5); MEAN CORPUSCULAR VOLUME 94.5 fl (80.0-96.0); MONO # 0.7 10^3/uL (0.0-0.8); MONO % 7.3 % (0.0-5.0); NEUTROPHILS # 5.2 10^3/uL (1.5-8.5); NEUTROPHILS % 52.9 % (36.0-66.0); PLATELET COUNT, AUTOMATED 274 10^3/uL (150-450); RED BLOOD COUNT 4.18 10^6/uL (4.00-5.40); WHITE BLOOD COUNT 9.9 10^3/uL (4.0-10.0)
[2020-05-07] MEDS: LIDOCAINE 5% (LIDODERM) PATCH TD SCH (08:35)
[2020-05-07] MEDS: traMADol ER 100MG TABLET (ULTRAM ER) PO SCH (08:35)
[2020-05-07] MEDS: HumaLOG INSULIN (NovoLOG) PER UNIT SC SCH ×4 (08:36→20:46)
--- NOTE | 2020-05-07 10:24 | IPNPDOC ---
Subjective Date Seen The patient was seen on 05/07/20. Subjective Chief Complaint/HPI pt had good night sleep but still complaining of left shoulder and neck pain General: Denies: ROS Unobtainable, Chills, Night Sweats, Fatigue, Malaise, Normal Appetite, Other Symptoms Constitutional: Denies: Chills, Fever, Malaise, Night Sweats, Weakness, Fatigue, Weight Loss, Lethargy, Other Pulmonary: Denies: Dyspnea, Cough, Pleuritic Chest Pain, Other Symptoms Cardiovascular: Denies: Chest Pain, Palpitations, Orthopnea, Paroxysmal Noc. Dyspnea, Edema, Lt Headedness, Other Symptoms Gastrointestinal: Denies: Nausea, Vomiting, Abdominal Pain, Diarrhea, Constipation, Melena, Hematochezia, Other Symptoms Genitourinary: Denies: Dysuria, Frequency, Incontinence, Hematuria, Retention, Other Symptoms Musculoskeletal: Reports: Neck Pain, Shoulder Pain Neurological: Denies: Weakness, Numbness, Incoordination, Change in speech, Confusion, Seizures, Other Symptoms Objective Physical Examination Neck Exam: Positive: Supple Chest Exam: Positive: Clear to auscultation, Normal air movement Heart Exam: Positive: Rate Normal, Normal S1, Normal S2 Abdomen Exam: Positive: Normal bowel sounds, Soft, Tenderness Extremity Exam: Positive: Normal pulses Skin Exam: Positive: Nl turgor and temperature Assessment /Plan Problems (1) Acute renal failure Status: Acute Problem Text: pts renal function is improving very well BUN/CR 61/1.60 continue IVF as per orders Dr velásquez will see pt today and then decided about removal of her patton PT in progress might require rehab before going home (2) GERD (gastroesophageal reflux disease) Problem Text: Continue home meds (3) Diabetes mellitus Status: Chronic Problem Text: FSBS q ac and hs with coverage (4) HTN (hypertension) Status: Chronic Problem Text: Continue present meds (5) Hyperlipemia Status: Chronic Problem Text: continue home meds (6) UTI (urinary tract infection) Status: Acute Problem Text: continue Ceftriaxone, Urine cultures: Cornybacterium, colony count 4K only Nephro recommendations awaited regarding continuos use of IV anti bx (7) Left shoulder pain Problem Text: probably secondary to OA MRI of left shoulder and Cspine ordered Might require pain management consult once the report are back Continued Lidocaine patches and ultram PRN Pt is allergic to Codein and can not use NSAIDS secondary to ARIELA Plan/VTE VTE Prophylaxis Ordered?: Yes VS, I&O, 24H, Fishbone Vital Signs/I&O Vital Signs Date Time Temp Pulse Resp B/P (MAP) Pulse Ox O2 Delivery O2 Flow Rate FiO2 05/07/20 06:00 98.0 94 20 153/72 (99) 99 05/06/20 14:00 Room Air I&O- Last 24 Hours up to 6 AM 05/07/20 05:59 Intake Total 1050 ml Output Total 1600 ml Balance -550 ml Laboratory Data 24H LABS Laboratory Tests 2 05/07/20 05:49: Immature Granulocyte % (Auto) 0.7, Neutrophils (%) (Auto) 52.9, Lymphocytes (%) (Auto) 25.5, Monocytes (%) (Auto) 7.3H, Eosinophils (%) (Auto) 12.2H, Basophils (%) (Auto) 1.4H, Neutrophils # (Auto) 5.2, Lymphocytes # (Auto) 2.5, Monocytes # (Auto) 0.7, Eosinophils # (Auto) 1.2H, Basophils # (Auto) 0.1, Nucleated Red Blood Cells % (auto) 0.0, Anion Gap 5L, Glomerular Filtration Rate 32.7, Calcium Level 9.3, Total Bilirubin 0.3, Aspartate Amino Transf (AST/SGOT) 19, Alanine Aminotransferase (ALT/SGPT) 15, Alkaline Phosphatase 65, Total Protein 5.9L, Albumin 2.7L, Albumin/Globulin Ratio 0.8L CBC/BMP Laboratory Tests 05/07/20 05:49 Microbiology Microbiology 05/05/20 Urine Culture - Final, Complete Corynebacterium Species 05/03/20 Blood Culture - Preliminary, Resulted No Growth after 72 hours. All specime... 05/03/20 Blood Culture - Preliminary, Resulted No Growth after 72 hours. All specime... FERMIN HUFF MD May 07, 2020 10:24
--- NOTE | 2020-05-07 13:17 | REPVR ---
PROCEDURE INFORMATION: Exam: MR Cervical Spine Without Contrast Exam date and time: 05/07/2020 12:30 PM Age: 84 years old Clinical indication: Neck pain; Additional info: Intractable pain left shoulder TECHNIQUE: Imaging protocol: Multiplanar magnetic resonance images of the cervical spine without contrast. COMPARISON: No relevant prior studies available. FINDINGS: Vertebrae: There is straightening of the normal cervical lordosis. There is 2 mm of grade 1 retrolisthesis of C5 with respect to C6. Normal vertebral body alignment is otherwise preserved. Vertebral body heights are within normal limits. Spinal cord: Normal signal. No cord compression. C2-C3: There is a shallow disc osteophyte complex. There is mild facet hypertrophy. There is mild bilateral neural foraminal narrowing. C3-C4: There is a shallow disc osteophyte complex with a prominent central component. This indents the ventral thecal sac, contributing to mild canal stenosis. There is mild facet hypertrophy. There is severe bilateral neural foraminal narrowing. C4-C5: There is a diffuse disc osteophyte complex with a large left subarticular disc protrusion. This effaces the left lateral recess and displaces the thecal sac. There is mild facet hypertrophy. There is moderate to severe right and severe left neural foraminal narrowing. C5-C6: There is a diffuse disc osteophyte complex asymmetric to the right. This indents the ventral thecal sac, contributing to moderate canal stenosis. There is mild facet hypertrophy. There is severe bilateral neural foraminal narrowing. C6-C7: There is a diffuse disc osteophyte complex. There is mild facet hypertrophy. There is severe bilateral neural foraminal narrowing. There is mild canal stenosis. C7-T1: No significant disc disease. No significant spinal stenosis. Vertebral arteries: Expected flow voids in the vertebral arteries. Soft tissues: Unremarkable. IMPRESSION: Degenerative disc disease and spondylosis. At C4/5, left subarticular disc protrusion/extrusion effaces the left lateral recess, with potential compromise of the left C6 nerve root. There is moderate canal stenosis at this level. There is moderate to severe right and severe left neural foraminal narrowing. Electronically signed by: Cass Rivera On 05/07/2020 13:17:06 PM
--- NOTE | 2020-05-07 13:24 | IPNPDOC ---
Text Note Date of Service The patient was seen on 05/07/20. NOTE SUBJECTIVE: Patient was seen and examined today sitting up in a chair. She states she is feeling somewhat better, no new issues. She has a patton catheter in place which is draining urine with some debris. OBJECTIVE: PHYSICAL EXAMINATION: VITAL SIGNS: Please see below. GENERAL: Alert, sitting up comfortably in a chair, in no acute distress HEENT: NC, AT, moist mucous membranes CARDIOVASCULAR: RRR, normal S1 and S2 RESPIRATORY: CTAB, no wheezing, rhonchi, or rales ABDOMINAL: Soft, nontender, nondistended, bowel sounds present EXTREMITIES: no edema noted. ASSESSMENT/PLAN: 84 year old female who presented with acute renal failure secondary to UTI. 1. Urinary tract infection. IV fluids complete after 2 liters total. Continue IV ceftriaxone for antibiotic coverage. Urine draining from the Patton continues to show debris. Culture positive for corynebacterium, no sensitivities available. 2. Acute renal failure on CKD stage 4. Resolving, creatinine improved to 1.6 today, down from 2.02. Her baseline appears to be around 1.8, so she appears to be back to baseline renal function. 3. Urinary retention. Trial of patton removal today with bladder scans to monitor for chronic retention. We will also start her on Flomax. If she continues to retain urine she may need to be discharged with a patton catheter in place. 4. Chronic CHF. Diuretics on hold, will need to decide about restarting prior to discharge. Thank you for the consultation on this patient, we will continue to follow along. VS,Dheerajbone, I+O VS, Fishbone, I+O Laboratory Tests 05/07/20 05:49 Vital Signs Date Time Temp Pulse Resp B/P (MAP) Pulse Ox O2 Delivery O2 Flow Rate FiO2 05/07/20 06:00 98.0 94 20 153/72 (99) 99 05/06/20 14:00 Room Air I&O- Last 24 Hours up to 6 AM 05/07/20 06:00 Intake Total 1080 ml Output Total 1450 ml Balance -370 ml GME ATTESTATION GME ATTESTATION My faculty preceptor for this patient encounter was physically present during the encounter and was fully available. All aspects of the patient interview, examination, medical decision making process, and medical care plan development were reviewed and approved by the faculty preceptor. The faculty preceptor is aware and concurs with the plan as stated in the body of this note and will attest to such by his/her cosignature. ATTENDING NOTE ARIELA on CKD Urinary Retention UTI CHF Improving ARIELA.DC Patton.Flomax. Bladder scan Q8hr. Rocephin for 5 days. No diuretic for now. JOSE MARIA ALVAREZ D.O. May 07, 2020 13:24 UZIEL BARNES MD May 07, 2020 17:06
[2020-05-07] MEDS: cefTRIAXone SOD 1 GM in D5W MINI-BAG PLUS 50 ML IV SCH (13:46)
[2020-05-07 14:00] VITALS: BP 140/84
[2020-05-07] MEDS: TAMSULOSIN 0.4 MG CAP PO SCH (20:43)
[2020-05-07] MEDS: **NOTE PATIENT COMMENT** MISC XX SCH (20:44)
[2020-05-07 22:00] VITALS: BP 144/81
[2020-05-08] MEDS: ACETAMINOPHEN TAB 650MG DOSE (2X325MG) PO PRN ×3 (01:39→21:32)
[2020-05-08 06:00] VITALS: BP 146/88
[2020-05-08 06:11] LABS: BASO # 0.1 10^3/uL (0.0-0.2); EOS % 10.2 % (0.0-3.0); HEMATOCRIT 37.3 % (36.0-47.0); HEMOGLOBIN 11.8 g/dl (12.0-15.5); LYMPH # 1.8 10^3/uL (1.5-5.0); LYMPH % 19.5 % (24.0-44.0); MEAN CORPUSCULAR HEMOGLOBIN 29.8 pg (27.0-33.0); MEAN CORPUSCULAR HGB CONC 31.6 g/dl (32.0-36.5); MEAN CORPUSCULAR VOLUME 94.2 fl (80.0-96.0); MONO # 0.6 10^3/uL (0.0-0.8); MONO % 6.7 % (0.0-5.0); NEUTROPHILS # 5.7 10^3/uL (1.5-8.5); NEUTROPHILS % 61.8 % (36.0-66.0); PLATELET COUNT, AUTOMATED 271 10^3/uL (150-450); RED BLOOD COUNT 3.96 10^6/uL (4.00-5.40); WHITE BLOOD COUNT 9.3 10^3/uL (4.0-10.0)
[2020-05-08 06:36] LABS: ALBUMIN 2.7 GM/DL (3.2-5.2); BILIRUBIN,TOTAL 0.3 MG/DL (0.2-1.0); CALCIUM LEVEL 9.5 MG/DL (8.8-10.2); CREATININE FOR GFR 1.5 MG/DL (0.55-1.30); GLOMERULAR FILTRATION RATE 35.2 (>32); POTASSIUM SERUM 4.2 MEQ/L (3.5-5.1); TOTAL PROTEIN 5.9 GM/DL (6.4-8.2)
[2020-05-08] MEDS: HumaLOG INSULIN (NovoLOG) PER UNIT SC SCH ×4 (07:30→20:56)
[2020-05-08] MEDS: traMADol ER 100MG TABLET (ULTRAM ER) PO SCH (09:32)
[2020-05-08] MEDS: LIDOCAINE 5% (LIDODERM) PATCH TD SCH (09:34)
--- NOTE | 2020-05-08 11:16 | IPNPDOC ---
Subjective Date Seen The patient was seen on 05/08/20. Subjective Chief Complaint/HPI pt feels somewhat better when resting. MRI left shoulder report still pending. General: Denies: ROS Unobtainable, Chills, Night Sweats, Fatigue, Malaise, Normal Appetite, Other Symptoms Constitutional: Denies: Chills, Fever, Malaise, Night Sweats, Weakness, Fatigue, Weight Loss, Lethargy, Other Pulmonary: Denies: Dyspnea, Cough, Pleuritic Chest Pain, Other Symptoms Cardiovascular: Denies: Chest Pain, Palpitations, Orthopnea, Paroxysmal Noc. Dyspnea, Edema, Lt Headedness, Other Symptoms Gastrointestinal: Denies: Nausea, Vomiting, Abdominal Pain, Diarrhea, Constipation, Melena, Hematochezia, Other Symptoms Genitourinary: Denies: Dysuria, Frequency, Incontinence, Hematuria, Retention, Other Symptoms Hematologic: Denies: Bruising, Bleeding Excessively, Petecchia, Purpura, Enlarged Lymph Nodes, Other Hematologic Musculoskeletal: Reports: Neck Pain, Shoulder Pain Neurological: Denies: Weakness, Numbness, Incoordination, Change in speech, Co nfusion, Seizures, Other Symptoms Objective Physical Examination Neck Exam: Positive: Supple Chest Exam: Positive: Clear to auscultation, Normal air movement Heart Exam: Positive: Rate Normal, Normal S1, Normal S2 Abdomen Exam: Positive: Normal bowel sounds, Soft, Tenderness Extremity Exam: Positive: Normal pulses Skin Exam: Positive: Nl turgor and temperature Assessment /Plan Problems (1) Acute renal failure Status: Acute Problem Text: pts renal function is improving very well today her BUN 49 and Cr 1.5 continue IVF as per orders , nephro F/U appreciated Altamirano was removed yesterday as per nephro recommendations PT in progress might require rehab before going home (2) GERD (gastroesophageal reflux disease) Problem Text: Continue home meds (3) Diabetes mellitus Status: Chronic Problem Text: FSBS q ac and hs with coverage (4) HTN (hypertension) Status: Chronic Problem Text: Continue present meds (5) Hyperlipemia Status: Chronic Problem Text: continue home meds (6) UTI (urinary tract infection) Status: Acute Problem Text: continue Ceftriaxone, Urine cultures: Cornybacterium, colony count 4K only Nephro recommendations awaited regarding continuos use of IV anti bx (7) Left shoulder pain Problem Text: probably secondary to OA MRI of left shoulder and Cspine ordered Might require pain management consult once the report are back Continued Lidocaine patches and ultram PRN Pt is allergic to Codein and can not use NSAIDS secondary to ARIELA Pain management consult called and spoke with Fransisco today. Further as per pain mangement Plan/VTE VTE Prophylaxis Ordered?: Yes VS, I&O, 24H, Fishbone Vital Signs/I&O Vital Signs Date Time Temp Pulse Resp B/P (MAP) Pulse Ox O2 Delivery O2 Flow Rate FiO2 05/08/20 06:00 98.1 107 20 146/88 (107) 95 05/06/20 14:00 Room Air I&O- Last 24 Hours up to 6 AM 05/08/20 06:00 Intake Total 1210 ml Output Total 350 ml Balance 860 ml Laboratory Data 24H LABS Laboratory Tests 2 05/08/20 05:47: Immature Granulocyte % (Auto) 0.8, Neutrophils (%) (Auto) 61.8, Lymphocytes (%) (Auto) 19.5L, Monocytes (%) (Auto) 6.7H, Eosinophils (%) (Auto) 10.2H, Basophils (%) (Auto) 1.0, Neutrophils # (Auto) 5.7, Lymphocytes # (Auto) 1.8, Monocytes # (Auto) 0.6, Eosinophils # (Auto) 1.0H, Basophils # (Auto) 0.1, Nucleated Red Blood Cells % (auto) 0.0, Anion Gap 7L, Glomerular Filtration Rate 35.2, Calcium Level 9.5, Total Bilirubin 0.3, Aspartate Amino Transf (AST/SGOT) 28, Alanine Aminotransferase (ALT/SGPT) 23, Alkaline Phosphatase 70, Total Protein 5.9L, Albumin 2.7L, Albumin/Globulin Ratio 0.8L CBC/BMP Laboratory Tests 05/08/20 05:47 Microbiology Microbiology 05/05/20 Urine Culture - Final, Complete Corynebacterium Species 05/03/20 Blood Culture - Preliminary, Resulted No Growth after 72 hours. All specime... 05/03/20 Blood Culture - Preliminary, Resulted No Growth after 72 hours. All specime... FERMIN HUFF MD May 08, 2020 11:16
--- NOTE | 2020-05-08 13:42 | IPNPDOC ---
Text Note Date of Service The patient was seen on 05/08/20. NOTE SUBJECTIVE: Patient was seen and examined today sitting up in a chair. She states she is feeling well today. She states she was able to pass urine this morning and notes a large volume of urine. No fevers overnight. OBJECTIVE: PHYSICAL EXAMINATION: VITAL SIGNS: Please see below. GENERAL: Alert, sitting up comfortably in a chair, in no acute distress HEENT: NC, AT, moist mucous membranes CARDIOVASCULAR: RRR, normal S1 and S2 RESPIRATORY: CTAB, no wheezing, rhonchi, or rales ABDOMINAL: Soft, nontender, nondistended, bowel sounds present EXTREMITIES: Right arm is edematous with multiple large areas of ecchymosis and swelling around the IV site. no lower extremity edema noted. ASSESSMENT/PLAN: 84 year old female who presented with acute renal failure secondary to UTI. 1. Urinary tract infection. IV fluids complete after 2 liters total. Continue IV ceftriaxone for antibiotic coverage. Culture positive for corynebacterium, no sensitivities available. Patton catheter removed yesterday, patient reports good urine output this morning, amount was not documented in the chart. 2. Acute renal failure on CKD stage 4. Resolving, creatinine improved to 1.5 today. Her baseline appears to be around 1.8, so she appears to be back to baseline renal function. 3. Urinary retention. Status post patton catheter. Producing good urine per patient, although the output is not documented in the EMR. Continue flomax. Bladder scan q8hrs to rule out chronic retention. If she continues to retain urine she may require a chronic patton catheter. 4. Chronic CHF. Diuretics on hold, will need to decide about restarting prior to discharge. She is not retaining fluid at this time so no indication to restart diuretics 5. Right arm edema. IV appears to be infiltrated in the right arm. Will discontinue this IV. Duplex ultrasound of the right arm ordered to rule out DVT. Thank you for the consultation on this patient, we will continue to follow along. VS,Fishbone, I+O VS, Fishbone, I+O Laboratory Tests 05/08/20 05:47 Vital Signs Date Time Temp Pulse Resp B/P (MAP) Pulse Ox O2 Delivery O2 Flow Rate FiO2 05/08/20 06:00 98.1 107 20 146/88 (107) 95 05/06/20 14:00 Room Air I&O- Last 24 Hours up to 6 AM 05/08/20 06:00 Intake Total 1210 ml Output Total 350 ml Balance 860 ml GME ATTESTATION GME ATTESTATION My faculty preceptor for this patient encounter was physically present during the encounter and was fully available. All aspects of the patient interview, examination, medical decision making process, and medical care plan development were reviewed and approved by the faculty preceptor. The faculty preceptor is aware and concurs with the plan as stated in the body of this note and will attest to such by his/her cosignature. ATTENDING NOTE ARIELA Urinary Retention and UTI CHF Rt arm edema and ecchymosis. DC Rt arm IV line. Do doppler Rt arm. Cont Flomax. ARIELA improving. JOSE MARIA ALVAREZ D.O. May 08, 2020 13:42 UZIEL BARNES MD May 08, 2020 20:31
[2020-05-08 14:00] VITALS: BP 133/80
--- NOTE | 2020-05-08 15:30 | CR.PDOC ---
[facility] Pain Clinic Consultation General Date of Consultation: 05/08/20 Chief Complaint The patient is a 84-year-old female admitted with a reason for visit of Acute Renal Failure. History of Present Illness 84 year old female with chronic left shoulder pain that is currently being exacerbated by a pinched nerve. She admits that the trazadone she is taking currently has not been effective but she does feel the lidocaine patches have been beneficial. Home Medications Scheduled Allopurinol (Allopurinol) 100 Mg Tab, 100 MG PO BID, (Reported) Amlodipine Besylate (Amlodipine Besylate) 2.5 Mg Tablet, 2.5 MG PO DAILY, (Reported) Aspirin (Aspir 81) 81 Mg Tablet.dr, 81 MG PO Q2D, (Reported) Clopidogrel Bisulfate (Clopidogrel) 75 Mg Tab, 75 MG PO DAILY, (Reported) Ergocalciferol (Vitamin D2) (Vitamin D2) 50,000 Units Cap, 50,000 UNITS PO Q2WK, (Reported) EVERY OTHER RODRIGUEZ Furosemide (Furosemide) 40 Mg Tab, 80 MG PO QAM, (Reported) Furosemide (Furosemide) 40 Mg Tablet, 40 MG PO QHS, (Reported) Insulin NPH Hum/Reg Insulin Hm (Humulin 70-30 Vial) 1 Inj Inj, 17 UNITS SC QAM, (Reported) Insulin NPH Hum/Reg Insulin Hm (Humulin 70-30 Vial) 100 Unit/1 Ml Vial, 13 UNITS SC QPM, (Reported) Lactobacillus Acidophilus (Probiotic) 1 Cap Cap, 1 CAP PO DAILY, (Reported) Metoprolol Succinate (Metoprolol Succinate) 50 Mg Tab.er.24h, 50 MG PO BID, (Reported) [place]-3 Fatty Acids/Fish Oil (Fish Oil 1,000 mg Capsule) 1 Each Capsule, 1,000 MG PO DAILY, (Reported) Omeprazole (Omeprazole) 20 Mg Cap, 20 MG PO DAILY, (Reported) Oxybutynin Chloride (Oxybutynin Chloride) 5 Mg Tab, 5 MG PO DAILY, (Reported) Pravastatin Sodium (Pravastatin Sodium) 10 Mg Tab, 10 MG PO DAILY, (Reported) Spironolactone (Spironolactone) 25 Mg Tab, 25 MG PO DAILY, (Reported) Scheduled PRN Ipratropium/Albuterol Sulfate (Iprat-Albut 0.5-3(2.5) mg/3 ml) 3 Ml Ampul.neb, 1 MAXIMILIANO INH QID PRN for SHORTNESS OF BREATH, (Reported) Allergies Coded Allergies: Sulfa (Sulfonamide Antibiotics) (Verified Adverse Reaction, Intermediate, HYPOTENSION, 05/03/20) nitroglycerin (Verified Adverse Reaction, Intermediate, HYPOTENSION, 05/03/20) codeine (Verified Adverse Reaction, Mild, N/V, 05/03/20) Social History Social History Denies tobacco, alcohol, or illicit substance abuse. Review of Systems Subjective Constitutional: Denies: chills, fever Pulmonary: Denies: shortness of breath Cardiovascular: Denies: chest pain Gastrointestinal: Denies: loss of bowel control Genitourinary: Denies: loss of bladder control Musculoskeletal: Reports: shoulder pain Physical Examination Physical Examination Vital Signs/I&O Vital Signs Date Time Temp Pulse Resp B/P (MAP) Pulse Ox O2 Delivery O2 Flow Rate FiO2 05/08/20 06:00 98.1 107 20 146/88 (107) 95 05/06/20 14:00 Room Air I&O- Last 24 Hours up to 6 AM 05/08/20 06:00 Intake Total 1210 ml Output Total 350 ml Balance 860 ml General Exam: Positive: alert Chest Exam: Positive: Clear to auscultation Heart Exam: Positive: Regular rate and rhythm Laboratory Data Labs 24H Laboratory Tests 2 05/08/20 05:47: Immature Granulocyte % (Auto) 0.8, Neutrophils (%) (Auto) 61.8, Lymphocytes (%) (Auto) 19.5L, Monocytes (%) (Auto) 6.7H, Eosinophils (%) (Auto) 10.2H, Basophils (%) (Auto) 1.0, Neutrophils # (Auto) 5.7, Lymphocytes # (Auto) 1.8, Monocytes # (Auto) 0.6, Eosinophils # (Auto) 1.0H, Basophils # (Auto) 0.1, Nucleated Red Blood Cells % (auto) 0.0, Anion Gap 7L, Glomerular Filtration Rate 35.2, Calcium Level 9.5, Total Bilirubin 0.3, Aspartate Amino Transf (AST/SGOT) 28, Alanine Aminotransferase (ALT/SGPT) 23, Alkaline Phosphatase 70, Total Protein 5.9L, Albumin 2.7L, Albumin/Globulin Ratio 0.8L CBC/BMP Laboratory Tests 05/08/20 05:47 Microbiology Microbiology 05/05/20 Urine Culture - Final, Complete Corynebacterium Species 05/03/20 Blood Culture - Final, Complete NO GROWTH AFTER 5 DAYS 05/03/20 Blood Culture - Final, Complete NO GROWTH AFTER 5 DAYS Assessment Given presenting symptoms recommend stopping Tramadol ER 200mg and starting Tramadol IR 50mg three times daily as needed, further recommend starting Gabapentin 100mg twice daily, and starting Baclofen 5mg three times daily as needed. Recommendation and Plan Thank you, for allowing us to participate in the care of your patient. Should you have any questions we will be glad to discuss this with you at any time please contact us here at the pain center at [phone]. NORMA FABIANP May 08, 2020 15:30
[2020-05-08] MEDS ORDERED: ONDANSETRON 4 MG TAB PO PRN (19:45)
[2020-05-08] MEDS: TAMSULOSIN 0.4 MG CAP PO SCH (21:31)
[2020-05-08 22:00] VITALS: BP 128/80
[2020-05-09] MEDS: **NOTE PATIENT COMMENT** MISC XX SCH (00:04)
[2020-05-09] MEDS: RAMELTEON 8 MG TAB (ROZEREM) PO PRN ×2 (02:19→20:29)
[2020-05-09] MEDS: ACETAMINOPHEN TAB 650MG DOSE (2X325MG) PO PRN ×2 (02:20→06:42)
[2020-05-09 06:00] VITALS: BP 153/81
[2020-05-09 06:23] LABS: CALCIUM LEVEL 9.4 MG/DL (8.8-10.2); CREATININE FOR GFR 1.36 MG/DL (0.55-1.30); GLOMERULAR FILTRATION RATE 39.4 (>32); POTASSIUM SERUM 4.5 MEQ/L (3.5-5.1)
--- NOTE | 2020-05-09 07:40 | REPVR ---
PROCEDURE INFORMATION: Exam: US Duplex Right Upper Extremity Veins, Limited Exam date and time: 05/09/2020 6:14 AM Age: 84 years old Clinical indication: Edema, localized; Upper extremity, right; Additional info: RT arm doppler to R/O dvt, edema RT arm TECHNIQUE: Imaging protocol: Real-time Duplex ultrasound of the Right Upper Extremity with 2-D montero scale, color Doppler flow and spectral waveform analysis with image documentation. Limited exam focused on the right upper extremity veins. COMPARISON: US BILATERAL VEIN MAPPING PRE AVF 12/21/2019 10:38 AM FINDINGS: Right deep veins: Unremarkable. Axillary and brachial veins are patent throughout without thrombus. Normal Doppler waveforms. Normal compressibility and/or augmentation response. Visualized internal jugular and subclavian veins are patent. Right superficial veins: There is thrombus in the cephalic vein distally. The basilic vein is patent. Soft tissues: Unremarkable. IMPRESSION: 1. No deep venous thrombus demonstrated in the right upper extremity. 2. Superficial thrombophlebitis of the cephalic vein distally. Electronically signed by: Koko Silva On 05/09/2020 07:39:28 AM
[2020-05-09] MEDS: GABAPENTIN 100 MG CAP PO SCH ×2 (09:25→20:30)
[2020-05-09] MEDS: BACLOFEN 5MG PER 1/2 TABLET PO SCH ×3 (09:25→20:29)
[2020-05-09] MEDS: traMADol 50 MG TAB PO SCH ×3 (09:26→20:32)
[2020-05-09] MEDS: LIDOCAINE 5% (LIDODERM) PATCH TD SCH (09:27)
[2020-05-09] MEDS: HumaLOG INSULIN (NovoLOG) PER UNIT SC SCH ×4 (09:27→20:29)
--- NOTE | 2020-05-09 11:05 | IPNPDOC ---
Subjective Date Seen The patient was seen on 05/09/20. Subjective Chief Complaint/HPI Pt participating with PT, offers no new complaints General: Denies: ROS Unobtainable, Chills, Night Sweats, Fatigue, Malaise, Normal Appetite, Other Symptoms Constitutional: Denies: Chills, Fever, Malaise, Night Sweats, Weakness, Fatigue, Weight Loss, Lethargy, Other Pulmonary: Denies: Dyspnea, Cough, Pleuritic Chest Pain, Other Symptoms Cardiovascular: Denies: Chest Pain, Palpitations, Orthopnea, Paroxysmal Noc. Dyspnea, Edema, Lt Headedness, Other Symptoms Gastrointestinal: Denies: Nausea, Vomiting, Abdominal Pain, Diarrhea, Con stipation, Melena, Hematochezia, Other Symptoms Hematologic: Denies: Bruising, Bleeding Excessively, Petecchia, Purpura, Enlarged Lymph Nodes, Other Hematologic Endocrine: Denies: Polydipsia, Polyphagia, Polyuria, Heat Intolerance, Cold Intolerance, Other Endocrine Sx Musculoskeletal: Reports: Neck Pain, Shoulder Pain Objective Physical Examination Neck Exam: Positive: Supple Chest Exam: Positive: Clear to auscultation, Normal air movement Heart Exam: Positive: Rate Normal, Normal S1, Normal S2 Abdomen Exam: Positive: Normal bowel sounds, Soft, Tenderness Extremity Exam: Positive: Normal pulses Skin Exam: Positive: Nl turgor and temperature Assessment /Plan Problems (1) Acute renal failure Status: Acute Problem Text: pts renal function is improving very well her BUN/Cr 37/1.36 , better than her baseline. DC IVF, Encourage PO intake of liquidsd Altamirano was removed yesterday as per nephro recommendations PT in progress Needs Rehab placement (2) GERD (gastroesophageal reflux disease) Problem Text: Continue home meds (3) Diabetes mellitus Status: Chronic Problem Text: FSBS q ac and hs with coverage (4) HTN (hypertension) Status: Chronic Problem Text: Continue present meds (5) Hyperlipemia Status: Chronic Problem Text: continue home meds (6) UTI (urinary tract infection) Status: Acute Problem Text: DC Ceftriaxone, Urine cultures: Cornybacterium, colony count 4K only IV anti Bx DCed: discussed with Dr Briseno over the phone (7) Left shoulder pain Problem Text: probably secondary to OA MRI c-spine shows C-3 nerve impingengement and moderate stenosis MRI Left shoulder : report still pending, file room called, they will call back. Dc lidocaine and ultram ER Pt is allergic to Codein and can not use NSAIDS secondary to ARIELA Pain management consult appreciated Pt started on ULtram IR, Gabapentine and baclofen as per their recs. monitor clinically Plan/VTE VTE Prophylaxis Ordered?: Yes VS, I&O, 24H, Fishbone Vital Signs/I&O Vital Signs Date Time Temp Pulse Resp B/P (MAP) Pulse Ox O2 Delivery O2 Flow Rate FiO2 05/09/20 09:26 16 Room Air 05/09/20 06:00 98.0 117 153/81 (105) 97 I&O- Last 24 Hours up to 6 AM 05/09/20 05:59 Intake Total 1320 ml Output Total 500 ml Balance 820 ml Laboratory Data 24H LABS Laboratory Tests 2 05/09/20 05:15: Anion Gap 6L, Glomerular Filtration Rate 39.4, Calcium Level 9.4 CBC/BMP Laboratory Tests 05/09/20 05:15 Microbiology Microbiology 05/05/20 Urine Culture - Final, Complete Corynebacterium Species 05/03/20 Blood Culture - Final, Complete NO GROWTH AFTER 5 DAYS 05/03/20 Blood Culture - Final, Complete NO GROWTH AFTER 5 DAYS FERMIN HUFF MD May 09, 2020 11:05
[2020-05-09] MEDS: METOPROLOL TART 50 MG TAB PO SCH ×2 (12:50→20:31)
[2020-05-09 14:00] VITALS: BP 168/68
[2020-05-09] MEDS: TAMSULOSIN 0.4 MG CAP PO SCH (20:29)
[2020-05-09 22:00] VITALS: BP 151/77
[2020-05-10 06:00] VITALS: BP 135/61
[2020-05-10 06:06] LABS: BASO # 0.1 10^3/uL (0.0-0.2); BASO % 0.9 % (0.0-1.0); EOS # 1.2 10^3/uL (0.0-0.5); EOS % 12.8 % (0.0-3.0); HEMATOCRIT 36.3 % (36.0-47.0); HEMOGLOBIN 11.3 g/dl (12.0-15.5); LYMPH # 2.2 10^3/uL (1.5-5.0); LYMPH % 22.5 % (24.0-44.0); MEAN CORPUSCULAR HEMOGLOBIN 29.8 pg (27.0-33.0); MEAN CORPUSCULAR HGB CONC 31.1 g/dl (32.0-36.5); MEAN CORPUSCULAR VOLUME 95.8 fl (80.0-96.0); MONO # 0.7 10^3/uL (0.0-0.8); MONO % 6.8 % (0.0-5.0); NEUTROPHILS # 5.4 10^3/uL (1.5-8.5); NEUTROPHILS % 55.9 % (36.0-66.0); PLATELET COUNT, AUTOMATED 246 10^3/uL (150-450); RED BLOOD COUNT 3.79 10^6/uL (4.00-5.40); WHITE BLOOD COUNT 9.6 10^3/uL (4.0-10.0)
[2020-05-10 06:43] LABS: ALBUMIN 2.6 GM/DL (3.2-5.2); BILIRUBIN,TOTAL 0.5 MG/DL (0.2-1.0); CALCIUM LEVEL 9.1 MG/DL (8.8-10.2); CREATININE FOR GFR 1.15 MG/DL (0.55-1.30); GLOMERULAR FILTRATION RATE 47.9 (>32); POTASSIUM SERUM 4.7 MEQ/L (3.5-5.1); TOTAL PROTEIN 5.1 GM/DL (6.4-8.2)
[2020-05-10] MEDS: GABAPENTIN 100 MG CAP PO SCH (08:42)
[2020-05-10] MEDS: HumaLOG INSULIN (NovoLOG) PER UNIT SC SCH ×2 (08:42→12:00)
[2020-05-10] MEDS: BACLOFEN 5MG PER 1/2 TABLET PO SCH (08:42)
[2020-05-10 08:43] VITALS: BP 149/59
[2020-05-10] MEDS: METOPROLOL TART 50 MG TAB PO SCH (08:43)
[2020-05-10] MEDS: traMADol 50 MG TAB PO SCH (08:43)
[2020-05-10] MEDS ORDERED: GABA-1171 PO (10:48)
[2020-05-10] MEDS ORDERED: TRAM50TA2 PO (10:48)
[2020-05-10] MEDS ORDERED: BACL10TA2 PO (10:48)
--- NOTE | 2020-05-10 11:47 | IPN ---
DATE: 05/09/2020 SUBJECTIVE: Patient was seen and examined at the bedside. She was sitting in the sofa today morning and she was just getting her physical therapy when I went to examine her. She denies any problems with urination now. Renal function continues to improve. Creatinine has been improving and today is 1.3. Right arm IV line was removed and she was found to have superficial thrombophlebitis on the Doppler of the right upper arm. OBJECTIVE: Vital signs: Temperature is 98 degrees Fahrenheit, blood pressure 158/81, her pulse rate was really fast when I examined her, it was more than 140, respiratory rate of 16, saturating 97% on room air. Intake and output: Urine output is not recorded well. Weight in the bed scale is not available. PHYSICAL EXAMINATION: General: Patient is awake, alert, oriented times three, sitting up in the sofa, no apparent distress. Head and neck exam: Extraocular muscles intact. Pupils equally round and reactive to light. Mucous membranes are moist. Neck is supple. There is no jugular venous distension (JVD). Cardiovascular: Patient has tachycardia which is regular. Trace edema of the bilateral lower extremities. Respiratory: Chest is clear to auscultation bilaterally. Bilateral equal air entry. No rales or rhonchi. Abdomen: Soft, obese, positive bowel sounds, nontender. Musculoskeletal: No clubbing or cyanosis. Pulses are 2+. Central nervous system (PROGRAM DEVELOPER): No focal deficits. Power is 5/5 in all extremities. LABORATORY REVIEW: CBC is from yesterday. BMP done today morning showed sodium 144, potassium 4.5, chloride 112, bicarbonate 26, BUN 37, creatinine is 1.3, it was 1.5 yesterday. Doppler of the right upper arm showed superficial thrombophlebitis of the cephalic vein. CURRENT INPATIENT MEDICATIONS: Patients medications were all reviewed by me. Tramadol has been decreased to 50 mg by mouth three times a day. I have started the patient on metoprolol 50 mg by mouth twice a day. She was taking the dose at home as well. ASSESSMENT AND PLAN: 1. Acute renal failure. It was secondary to urinary retention and urinary tract infection (UTI). Renal function is significantly better. Creatinine is down to 1.3. Diuretics are still on hold. 2. Urinary retention status post removal of Altamirano catheter. Patient is currently on Flomax and denies any problem with urination. 3. Tachycardia. Patient was on metoprolol as outpatient. I have restarted metoprolol 50 mg by mouth twice a day. 4. Right arm superficial thrombophlebitis. Patients IV line was removed yesterday. No need of anticoagulation at this time. DISPOSITION: Patients renal function is clinically getting better. Whenever patient is discharged, she will need to followup in nephrology within 2 weeks after discharge from the hospital. STEPHAN
--- NOTE | 2020-05-10 11:52 | IPNPDOC ---
Text Note Date of Service The patient was seen on 05/10/20. NOTE SUBJECTIVE: Patient was seen and examined today sitting up in a chair. She states she is feeling well today, no fevers overnight. She denies any leg swelling or shortness of breath. OBJECTIVE: PHYSICAL EXAMINATION: VITAL SIGNS: Please see below. GENERAL: Alert, sitting up comfortably in a chair, in no acute distress HEENT: NC, AT, moist mucous membranes CARDIOVASCULAR: RRR, normal S1 and S2 RESPIRATORY: CTAB, no wheezing, rhonchi, or rales ABDOMINAL: Soft, nontender, nondistended, bowel sounds present EXTREMITIES: Right arm is edematous with multiple large areas of ecchymosis and swelling around the IV site. No lower extremity edema noted. ASSESSMENT/PLAN: 84 year old female who presented with acute renal failure secondary to UTI. 1. Urinary tract infection. Status post IV ceftriaxone for antibiotic coverage. Culture positive for corynebacterium, no sensitivities available. Status post patton catheter, patient reports good urine. 2. Acute renal failure on CKD stage 4. Resolving, creatinine continues to improve and is down to 1.15 today which is better than her baseline. 3. Urinary retention. Status post patton catheter. Continues to produced good urine output with low post residual volume on bladder scan. Continue flomax. Bladder scan q8hrs to rule out chronic retention. 4. Chronic CHF. Diuretics were discontinued. She is not retaining fluid at this time so no indication to restart diuretics. 5. Right arm edema. S/P IV removal due to thrombophlebitis. Duplex ultrasound of the right arm negative for DVT. Thank you for the consultation on this patient, we will continue to follow along. VS,Fishbone, I+O VS, Fishbone, I+O Laboratory Tests 05/10/20 05:45 Vital Signs Date Time Temp Pulse Resp B/P (MAP) Pulse Ox O2 Delivery O2 Flow Rate FiO2 05/10/20 08:43 71 149/59 05/10/20 08:43 18 Room Air 05/10/20 06:00 98.2 95 I&O- Last 24 Hours up to 6 AM 05/10/20 06:00 Intake Total 590 ml Output Total 900 ml Balance -310 ml GME ATTESTATION GME ATTESTATION My faculty preceptor for this patient encounter was physically present during th e encounter and was fully available. All aspects of the patient interview, examination, medical decision making process, and medical care plan development were reviewed and approved by the faculty preceptor. The faculty preceptor is aware and concurs with the plan as stated in the body of this note and will attest to such by his/her cosignature. ATTENDING NOTE ARIELA on CKD Urinary Retention and UTI HFpEF Rt arm superficial Thrombophlebitis. Improving ARIELA. s/p Abx, Cont Flomax on DC. Advised frequent voiding. Diuretics to be started outpatient if needed. JOSE MARIA ALVAREZ D.O. May 10, 2020 11:52 UZIEL BARNES MD May 12, 2020 09:02
[2020-05-10] MEDS ORDERED: FLUBLOK(EGG FREE)(QUAD)INFLUENZA VACC 0.5ML SYRINGE 18YRS & OLDER IM ONE (13:00)
--- NOTE | 2020-05-10 21:28 | DS.PDOC ---
Discharge Summary General Date of Admission May 03, 2020 at 15:38 Date of Discharge 05/10/20 Discharge Summary PROCEDURES PERFORMED DURING STAY: [None]. ADMITTING DIAGNOSES: Urinary tract infection Urinary retention status post removal of Altamirano catheter Acute renal failure Tachycardia Right arm superficial thrombophlebitis Chronic CHF Right arm edema DISCHARGE DIAGNOSES: Urinary tract infection Urinary retention status post removal of Altamirano catheter Acute renal failure Tachycardia Right arm superficial thrombophlebitis Chronic CHF Right arm edema COMPLICATIONS/CHIEF COMPLAINT: Acute Renal Failure. HISTORY OF PRESENT ILLNESS: 84 yof with PMHx of DM-II,HTN,CHF (Non- specific),TIA,GERD,Hyperlipedemia had developed generalized tiredness and shoulder pain on both shoulders , pain is sharp persistant, non radiating, not relieved with meds, not exacerbated by respiration or physical movements, was seen at [facility] and was diagnosed with UTI, symptoms did not resolved and she went back there and was told that UTI is worse now, finally she decideded to go to nephrology office, where she was found to have elevated BUN/Cr and reffered to ED for admission. At present patient complaints of epigastric pain and bilat shoulder pain, no N/V/D. No CP or SOB either. HOSPITAL COURSE: During hospital stay the following issues addressed 1. Acute renal failure. It was secondary to urinary retention and urinary tract infection (UTI). Renal function is significantly better. 2. Urinary retention status post removal of Altamirano catheter. Patient is currently on Flomax and denies any problem with urination. 3. Tachycardia. Patient was on metoprolol as outpatient. I have restarted metoprolol 50 mg by mouth twice a day. 4. Right arm superficial thrombophlebitis. Patients IV line was removed y day. No need of anticoagulation at this time. Urinary tract infection. IV fluids complete after 2 liters total. Status post IV ceftriaxone for antibiotic coverage. Culture positive for corynebacterium DISCHARGE MEDICATIONS: Please see below. ALLERGIES: Please see below. PHYSICAL EXAMINATION ON DISCHARGE: VITAL SIGNS: Please see below. GENERAL: Alert, sitting up comfortably in a chair, in no acute distress HEENT: NC, AT, moist mucous membranes CARDIOVASCULAR: RRR, normal S1 and S2 RESPIRATORY: CTAB, no wheezing, rhonchi, or rales ABDOMINAL: Soft, nontender, nondistended, bowel sounds present EXTREMITIES: Right arm is edematous with multiple large areas of ecchymosis and swelling around the IV site. No lower extremity edema noted. LABORATORY DATA: Please see below. PROGNOSIS: fair ACTIVITY: [As tolerated]. DIET: cardiac DISPOSITION: [facility]. 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 TIME SPENT ON DISCHARGE: Greater than 40 minutes. Vital Signs/I&Os Vital Signs Date Time Temp Pulse Resp B/P (MAP) Pulse Ox O2 Delivery O2 Flow Rate FiO2 05/10/20 08:43 71 149/59 05/10/20 08:43 18 Room Air 05/10/20 06:00 98.2 95 I&O- Last 24 Hours up to 6 AM 05/10/20 06:00 Intake Total 590 ml Output Total 900 ml Balance -310 ml Laboratory Data Labs 24H Laboratory Tests 2 05/10/20 05:45: Immature Granulocyte % (Auto) 1.1, Neutrophils (%) (Auto) 55.9, Lymphocytes (%) (Auto) 22.5L, Monocytes (%) (Auto) 6.8H, Eosinophils (%) (Auto) 12.8H, Basophils (%) (Auto) 0.9, Neutrophils # (Auto) 5.4, Lymphocytes # (Auto) 2.2, Monocytes # (Auto) 0.7, Eosinophils # (Auto) 1.2H, Basophils # (Auto) 0.1, Nucleated Red Blood Cells % (auto) 0.0, Anion Gap 4L, Glomerular Filtration Rate 47.9, Calcium Level 9.1, Total Bilirubin 0.5#, Aspartate Amino Transf (AST/SGOT) 17, Alanine Aminotransferase (ALT/SGPT) 18, Alkaline Phosphatase 65, Total Protein 5.1L, Albumin 2.6L, Albumin/Globulin Ratio 1.0L 05/10/20 12:34: Bedside Glucose (Misc Panel) 141H CBC/BMP Laboratory Tests 05/10/20 05:45 FSBS Laboratory Tests Test 05/10/20 12:34 Range/Units Bedside Glucose (Misc Panel) 141 83-110 MG/DL Microbiology Microbiology 05/10/20 Respiratory Virus Panel (PCR) (JOSE FRANCISCO) - Final, Complete 05/05/20 Urine Culture - Final, Complete Corynebacterium Species 05/03/20 Blood Culture - Final, Complete NO GROWTH AFTER 5 DAYS 05/03/20 Blood Culture - Final, Complete NO GROWTH AFTER 5 DAYS Discharge Medications Scheduled Allopurinol (Allopurinol) 100 Mg Tab, 100 MG PO BID, (Reported) Amlodipine Besylate (Amlodipine Besylate) 2.5 Mg Tablet, 2.5 MG PO DAILY, (Reported) Aspirin (Aspir 81) 81 Mg Tablet.dr, 81 MG PO Q2D, (Reported) Baclofen (Baclofen) 10 Mg Tablet, 5 MG PO TID Clopidogrel Bisulfate (Clopidogrel) 75 Mg Tab, 75 MG PO DAILY, (Reported) Ergocalciferol (Vitamin D2) (Vitamin D2) 50,000 Units Cap, 50,000 UNITS PO Q2WK, (Reported) EVERY OTHER RODRIGUEZ Furosemide (Furosemide) 40 Mg Tab, 80 MG PO QAM, (Reported) Furosemide (Furosemide) 40 Mg Tablet, 40 MG PO QHS, (Reported) Gabapentin (Gabapentin) 100 Mg Capsule, 100 MG PO BID Insulin NPH Hum/Reg Insulin Hm (Humulin 70-30 Vial) 1 Inj Inj, 17 UNITS SC QAM, (Reported) Insulin NPH Hum/Reg Insulin Hm (Humulin 70-30 Vial) 100 Unit/1 Ml Vial, 13 UNITS SC QPM, (Reported) Lactobacillus Acidophilus (Probiotic) 1 Cap Cap, 1 CAP PO DAILY, (Reported) Metoprolol Succinate (Metoprolol Succinate) 50 Mg Tab.er.24h, 50 MG PO BID, (Reported) [place]-3 Fatty Acids/Fish Oil (Fish Oil 1,000 mg Capsule) 1 Each Capsule, 1,000 MG PO DAILY, (Reported) Omeprazole (Omeprazole) 20 Mg Cap, 20 MG PO DAILY, (Reported) Oxybutynin Chloride (Oxybutynin Chloride) 5 Mg Tab, 5 MG PO DAILY, (Reported) Pravastatin Sodium (Pravastatin Sodium) 10 Mg Tab, 10 MG PO DAILY, (Reported) Spironolactone (Spironolactone) 25 Mg Tab, 25 MG PO DAILY, (Reported) Scheduled PRN Ipratropium/Albuterol Sulfate (Iprat-Albut 0.5-3(2.5) mg/3 ml) 3 Ml Ampul.neb, 1 MAXIMILIANO INH QID PRN for SHORTNESS OF BREATH, (Reported) Tramadol HCl (Tramadol HCl) 50 Mg Tablet, 50 MG PO TID PRN for pain Allergies Coded Allergies: Sulfa (Sulfonamide Antibiotics) (Verified Adverse Reaction, Intermediate, HYPOTENSION, 05/03/20) nitroglycerin (Verified Adverse Reaction, Intermediate, HYPOTENSION, ) codeine (Verified Adverse Reaction, Mild, N/V, 05/03/20) JAKE COVARRUBIAS DO May 10, 2020 21:28
--- NOTE | 2020-05-24 14:22 | ECGEPIP ---
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
--- NOTE | 2020-06-04 08:09 | REP ---
PORTABLE CHEST X-RAY: SINGLE VIEW HISTORY: Acute renal failure. New admission. COMPARISON: Chest x-ray 07/05/2012. FINDINGS: Upright chest radiograph demonstrates a minimal zone of linear fibrosis in the right base. The lungs are otherwise clear. There is left coronary artery stent material visible. Heart is not enlarged. The aorta is calcific. Pulmonary vasculature is not increased. The pleural angles are sharp. No bony abnormality is appreciated. IMPRESSION: Mild linear fibrosis right base. Status post prior left coronary artery stenting. No acute disease. MTDD
--- NOTE | 2020-06-04 08:10 | REP ---
LEFT SHOULDER RADIOGRAPH: HISTORY: Left shoulder pain. TECHNIQUE: Single AP view of the left shoulder. FINDINGS: Mild age related changes include cortical irregularity at the acromioclavicular joint. The glenohumeral joint appears relatively normal. The subacromial space is normal. Surrounding soft tissues are unremarkable. IMPRESSION: Mild degenerative changes at the acromioclavicular joint. MTDD
--- NOTE | 2020-06-05 09:03 | REP ---
MRI OF THE LEFT SHOULDER WITHOUT CONTRAST: HISTORY: Intractable pain. TECHNIQUE: Multiple sequences obtained in the axial, coronal oblique and sagittal oblique planes. FINDINGS: There is a full thickness partial tear of the supraspinatus tendon with a gap in the tendon at the anterior leading edge approximately 1.5 cm in length. A portion of the more posterior tendon also demonstrates a full thickness partial tear beneath the acromion. There is a partial full thickness tear of the subscapularis tendon. There are mild hypertrophic degenerative changes of the acromioclavicular joint with mild subchondral marrow edema. The acromion is downward sloping and is type 2. In the bicipital groove, the biceps tendon is extremely thin and demonstrates at least a high grade partial tear and in fact, may be completely torn. There is no Hill-Sachs deformity. The deltoid muscle demonstrates no abnormal signal. I suspect a SLAP tear. Other portions of the labrum are grossly intact. Evaluation is limited due to excessive patient motion. There is a small amount of fluid in the subacromial subdeltoid bursa. IMPRESSION: Full thickness partial tear supraspinatus tendon and subscapularis tendon. Hypertrophic degenerative changes acromioclavicular joint with a type 2 acromion. The biceps tendon demonstrates at least a high grade partial tear that may in fact be completely torn. I also suspect a SLAP tear, but evaluation of the labrum was limited due to excessive patient motion. There is mild fluid in the subacromial subdeltoid bursa. MTDD
== END 2020-05-10 12:38 | DRG 683 ==
LOC: M ED 11:40 → M ED INP 15:38 → ENRESERV 19:12 → M MSPAV 19:42
PROVIDERS: ADMIT Internal Medicine; ATTEND Internal Medicine
DX: N17.9 Acute kidney failure, unspecified (principal); N39.0 Urinary tract infection, site not specified; I13.0 Hypertensive heart and chronic kidney disease with heart failure and stage 1 through stage 4 chronic kidney disease, or unspecified chronic kidney disease; E11.9 Type 2 diabetes mellitus without complications; E78.5 Hyperlipidemia, unspecified; K21.9 Gastro-esophageal reflux disease without esophagitis; I50.9 Heart failure, unspecified; M25.511 Pain in right shoulder; N18.4 Chronic kidney disease, stage 4 (severe); M25.512 Pain in left shoulder; I80.8 Phlebitis and thrombophlebitis of other sites; R33.9 Retention of urine, unspecified; Z79.82 Long term (current) use of aspirin; Z79.02 Long term (current) use of antithrombotics/antiplatelets; Z86.73 Personal history of transient ischemic attack (TIA), and cerebral infarction without residual deficits; Z79.899 Other long term (current) drug therapy; Z88.2 Allergy status to sulfonamides; Z88.5 Allergy status to narcotic agent; Z90.49 Acquired absence of other specified parts of digestive tract; Z87.891 Personal history of nicotine dependence; Z88.8 Allergy status to other drugs, medicaments and biological substances

== ENCOUNTER → 2020-05-15 | Outpatient (REF) | payer MEDICAID, MEDICARE ==
[~2020-05-15] MED LIST changes: +AMLO2.5T3 PO; +ASPI81TA86 PO; +BACL10TA2 PO; +FISH1000 PO; +GABA-1171 PO; +IPRA0.00 INH; +METO1TAB7 PO; +TRAM50TA2 PO
[2020-05-15 10:53] LABS: HEMATOCRIT 41.5 % (36.0-47.0); HEMOGLOBIN 12.4 g/dl (12.0-15.5); MEAN CORPUSCULAR HEMOGLOBIN 29.2 pg (27.0-33.0); MEAN CORPUSCULAR HGB CONC 29.9 g/dl (32.0-36.5); MEAN CORPUSCULAR VOLUME 97.6 fl (80.0-96.0); PLATELET COUNT, AUTOMATED 286 10^3/uL (150-450); RED BLOOD COUNT 4.25 10^6/uL (4.00-5.40); WHITE BLOOD COUNT 8.9 10^3/uL (4.0-10.0)
[2020-05-15 11:35] LABS: CALCIUM LEVEL 9.4 MG/DL (8.8-10.2); CREATININE FOR GFR 1.71 MG/DL (0.55-1.30); GLOMERULAR FILTRATION RATE 30.3 (>32); POTASSIUM SERUM 4.4 MEQ/L (3.5-5.1)
== END ==
PROVIDERS: ATTEND Internal Medicine
DX: I50.9 Heart failure, unspecified (principal)

== ENCOUNTER → 2020-05-22 | Outpatient (CLI) | payer MEDICARE, MEDICAID | LOC: M PAIN 12:46 | PROVIDERS: ATTEND Nurse Practitioner Family | DX: M50.10 Cervical disc disorder with radiculopathy, unspecified cervical region (principal) ==

== ENCOUNTER → 2020-05-22 | Outpatient (REF) | payer MEDICAID, MEDICARE ==
[2020-05-22 10:47] LABS: HEMATOCRIT 39.1 % (36.0-47.0); HEMOGLOBIN 11.9 g/dl (12.0-15.5); MEAN CORPUSCULAR HEMOGLOBIN 29.8 pg (27.0-33.0); MEAN CORPUSCULAR HGB CONC 30.4 g/dl (32.0-36.5); PLATELET COUNT, AUTOMATED 247 10^3/uL (150-450); RED BLOOD COUNT 3.99 10^6/uL (4.00-5.40); WHITE BLOOD COUNT 8.9 10^3/uL (4.0-10.0)
[2020-05-22 11:19] LABS: CALCIUM LEVEL 9.5 MG/DL (8.8-10.2); CREATININE FOR GFR 2.32 MG/DL (0.55-1.30); GLOMERULAR FILTRATION RATE 21.3 (>32); POTASSIUM SERUM 4.6 MEQ/L (3.5-5.1)
[2020-05-23 15:56] LABS: APPEARANCE, URINE CLEAR (CLEAR); COLOR, URINE YELLOW (YELLOW); SPECIFIC GRAVITY URINE AUTO 1.009 (1.002-1.035)
[2020-05-23 15:57] LABS: BILIRUBIN, URINE AUTO NEGATIVE (NEGATIVE); BLOOD, URINE BLOOD NEGATIVE (NEGATIVE); GLUCOSE, URINE (UA) AUTO NEGATIVE (NEGATIVE); KETONE, URINE AUTO NEGATIVE (NEGATIVE); LEUKOCYTE ESTERASE, URINE AUTO 1+ (NEGATIVE); NITRITE, URINE AUTO NEGATIVE (NEGATIVE); PROTEIN, URINE AUTO NEGATIVE (NEGATIVE); UROBILINOGEN, URINE AUTO 0.2 mg/dL (0.0-2.0); WBC, URINE AUTO 14 /HPF (0-3)
[2020-05-23 15:58] LABS: BACTERIA, URINE AUTO 1+ (NEGATIVE); MUCUS, URINE SMALL (NEGATIVE); RBC, URINE AUTO 2 /HPF (0-3); SQUAMOUS EPITHELIAL CELL UR AU 0 /HPF (0-6)
== END ==
PROVIDERS: ATTEND Internal Medicine
DX: I50.9 Heart failure, unspecified (principal)

== ENCOUNTER → 2020-05-24 | Outpatient (REF) ==
[2020-05-24 11:30] LABS: CALCIUM LEVEL 9.5 MG/DL (8.8-10.2); CREATININE FOR GFR 1.96 MG/DL (0.55-1.30); GLOMERULAR FILTRATION RATE 25.9 (>32); POTASSIUM SERUM 4.8 MEQ/L (3.5-5.1)
== END ==
PROVIDERS: ATTEND Internal Medicine
DX: N17.9 Acute kidney failure, unspecified (principal)

== ENCOUNTER → 2020-05-24 | Outpatient (CLI) | payer MEDICARE, MEDICAID ==
--- NOTE | 2020-05-24 15:23 | REPVR ---
PROCEDURE INFORMATION: Exam: US Retroperitoneal Limited, Kidneys Exam date and time: 05/24/2020 2:48 PM Age: 84 years old Clinical indication: Condition or disease; Other: Acute ckd TECHNIQUE: Imaging protocol: Real-time ultrasound of the retroperitoneum with image documentation. Examination was focused on the kidneys. COMPARISON: CT ABD PELVIS W/O CONTRAST 05/03/2020 12:18 PM FINDINGS: Right kidney: Right kidney measures 10.0 x 4.4 by 6.6 cm and contains a parapelvic cyst or focally dilated calyx in the upper pole measuring 4.9 x 4 by 5 cm. Left kidney: Left kidney is not optimally seen. It measures approximately 6.6 x 4.2 by 3.9 cm. No left-sided hydronephrosis. IMPRESSION: Simple parapelvic cyst or focally dilated calyx upper pole right kidney. No change from 2015. No follow-up recommended. 2. Atrophic left kidney. Electronically signed by: Norma Fan On 05/24/2020 15:22:43 PM
== END ==
LOC: M RAD 14:13
PROVIDERS: ATTEND Physician Assistant
DX: N18.9 Chronic kidney disease, unspecified (principal); R33.9 Retention of urine, unspecified; N28.1 Cyst of kidney, acquired

== ENCOUNTER → 2020-05-27 | Outpatient (REF) ==
[2020-05-27 10:11] LABS: HEMATOCRIT 43.6 % (36.0-47.0); HEMOGLOBIN 13.7 g/dl (12.0-15.5); MEAN CORPUSCULAR HEMOGLOBIN 30.3 pg (27.0-33.0); MEAN CORPUSCULAR HGB CONC 31.4 g/dl (32.0-36.5); MEAN CORPUSCULAR VOLUME 96.5 fl (80.0-96.0); PLATELET COUNT, AUTOMATED 395 10^3/uL (150-450); RED BLOOD COUNT 4.52 10^6/uL (4.00-5.40); WHITE BLOOD COUNT 11.7 10^3/uL (4.0-10.0)
[2020-05-27 10:30] LABS: CALCIUM LEVEL 9.6 MG/DL (8.8-10.2); CREATININE FOR GFR 2.07 MG/DL (0.55-1.30); GLOMERULAR FILTRATION RATE 24.3 (>32); POTASSIUM SERUM 5.1 MEQ/L (3.5-5.1)
== END ==
PROVIDERS: ATTEND Internal Medicine
DX: N18.9 Chronic kidney disease, unspecified (principal)

== ENCOUNTER → 2020-05-29 | Outpatient (REF) ==
[2020-05-29 16:25] LABS: HEMATOCRIT 43.1 % (36.0-47.0); HEMOGLOBIN 13.5 g/dl (12.0-15.5); MEAN CORPUSCULAR HGB CONC 31.3 g/dl (32.0-36.5); MEAN CORPUSCULAR VOLUME 95.8 fl (80.0-96.0); PLATELET COUNT, AUTOMATED 410 10^3/uL (150-450); WHITE BLOOD COUNT 13.1 10^3/uL (4.0-10.0)
[2020-05-29 17:01] LABS: CALCIUM LEVEL 9.3 MG/DL (8.8-10.2); CREATININE FOR GFR 1.78 MG/DL (0.55-1.30); GLOMERULAR FILTRATION RATE 28.9 (>32); POTASSIUM SERUM 4.5 MEQ/L (3.5-5.1)
== END ==
PROVIDERS: ATTEND Internal Medicine
DX: N18.9 Chronic kidney disease, unspecified (principal)

== ENCOUNTER → 2020-05-31 | Outpatient (REF) | payer MEDICAID, MEDICARE ==
[2020-05-31 13:12] LABS: HEMATOCRIT 43.2 % (36.0-47.0); HEMOGLOBIN 13.4 g/dl (12.0-15.5); MEAN CORPUSCULAR VOLUME 96.6 fl (80.0-96.0); PLATELET COUNT, AUTOMATED 359 10^3/uL (150-450); RED BLOOD COUNT 4.47 10^6/uL (4.00-5.40); WHITE BLOOD COUNT 15.1 10^3/uL (4.0-10.0)
[2020-05-31 13:32] LABS: CALCIUM LEVEL 9.4 MG/DL (8.8-10.2); CREATININE FOR GFR 1.88 MG/DL (0.55-1.30); GLOMERULAR FILTRATION RATE 27.1 (>32); POTASSIUM SERUM 4.8 MEQ/L (3.5-5.1)
== END ==
PROVIDERS: ATTEND Internal Medicine
DX: N18.9 Chronic kidney disease, unspecified (principal); I50.9 Heart failure, unspecified

== ENCOUNTER → 2020-11-28 | Outpatient (REF) | payer MEDICARE, MEDICAID | LOC: M LAB REF 16:37 | PROVIDERS: ATTEND Nurse Practitioner Family | DX: I50.32 Chronic diastolic (congestive) heart failure (principal) ==